=== PATIENT | male | born 1950 | race Caucasian/White ===

== ENCOUNTER 2018-08-07 05:26 | Inpatient (IN) ==
[2018-07-31 19:21] LABS: ALT/SGPT 22 U/l (0-40); AST/SGOT 19 U/l (0-37); Albumin 3.9 gm/dL (3.2-5.2); Albumin/Globulin Ratio 1.4 (1.0-2.3); Alkaline Phosphatase 93 U/L (39-117); Bilirubin,Total 0.4 mg/dL (0.0-1.0); Blood Urea Nitrogen 27 mg/dl (8-23); Calcium 9.2 mg/dl (8.6-10.4); Carbon Dioxide 20 mmol/L (22-30); Chloride 106 mmol/L (96-108); Globulin 2.8 gm/dL (2.2-3.7); Glomerular Filtration Rate 44; Glucose 110 mg/dL (70-105); Potassium 5.1 mmol/L (3.3-5.1); Sodium 141 mmol/L (133-145)
[2018-07-31 19:32] LABS: Basophils # (Auto) 0 K/mcL (0.0-0.3); Basophils % (Auto) 0.3 % (0.0-2.0); Eosinophils # (Auto) 0.4 K/mcL (0.0-0.7); Eosinophils % (Auto) 2.5 % (0.0-7.0); Granulocytes % (Auto) 79.3 % (38.0-78.0); Hemoglobin 12.8 g/dL (13.5-16.5); Lymphocytes # (Auto) 1.8 K/mcL (1.5-4.8); Lymphocytes % (Auto) 12.4 % (15.5-49.0); Mean Platelet Volume 9.2 fL (7.4-10.4); Monocytes # (Auto) 0.8 K/mcL (0.1-0.9); Monocytes % (Auto) 5.5 % (1.0-12.0); Platelet Count 323 K/mcL (140-440); RBC 4.54 M/mcL (4.50-5.90); Red Cell Distribution Width 15.3 % (11.5-14.5); WBC 14.4 K/mcL (4.5-11.0)
[2018-08-07] MEDS ORDERED: cefOXitin 2 GM VIAL IV SCH (06:00)
[2018-08-07] MEDS ORDERED: IPRATROPIUM/ALBUTEROL 3 ML AMPUL.NEB NEB PRN ×2 (06:00→11:09)
[2018-08-07] MEDS ORDERED: SCOPOLAMINE 1 PATCH PATCH TOPICAL PRN (06:00)
[2018-08-07 06:57] LABS: Estimated Average Glucose(eAG) 157 mg/dL; Hemoglobin A1C 7.1 % HGB (4.0-6.0)
[2018-08-07] MEDS ORDERED: ONDANSETRON 4 MG/2 ML VIAL IV ONE (09:10)
[2018-08-07] MEDS ORDERED: MIDAZOLAM 2 MG/2 ML VIAL IV ONE (09:10)
[2018-08-07] MEDS ORDERED: LIDOCAINE HCL/PF 100 MG/5 ML SYRINGE IV ONE (09:10)
[2018-08-07] MEDS ORDERED: GLYCOPYRROLATE 0.2 MG/ML VIAL IV ONE (09:10)
[2018-08-07] MEDS ORDERED: DEXAMETHASONE 10 MG/ML VIAL IV ONE (09:10)
[2018-08-07] MEDS ORDERED: PHENYLEPHRINE 10 MG/ML VIAL IV ONE (09:10)
[2018-08-07] MEDS ORDERED: SUGAMMADEX SODIUM 200 MG/2 ML VIAL IV ONE (09:10)
[2018-08-07] MEDS ORDERED: SUCCINYLCHOLINE 20 MG/ML ML IV ONE (09:10)
[2018-08-07] MEDS ORDERED: HYDROmorphone 2 MG/ML VIAL IV ONE (09:10)
[2018-08-07] MEDS ORDERED: ROCURONIUM 10 MG/ML ML IV ONE (09:10)
[2018-08-07] MEDS ORDERED: PROPOFOL 200 MG/20 ML VIAL IV ONE (09:10)
[2018-08-07] MEDS ORDERED: KETAMINE 100 MG/ML ML IV ONE (09:10)
[2018-08-07] MEDS ORDERED: fentaNYL 250 MCG/5 ML VIAL IV ONE (09:10)
[2018-08-07] MEDS ORDERED: 0.9 % SODIUM CHLORIDE 250 ML IV SCH (10:45)
[2018-08-07] MEDS ORDERED: GELATIN SPONGE,ABSORBABLE 1 EACH SPONGE TOPICAL ONE (11:00)
[2018-08-07] MEDS ORDERED: ACETAMINOPHEN 1,000 MG/100 ML BOTTLE IV ONE (11:09)
[2018-08-07] MEDS ORDERED: HYDROmorphone 2 MG/ML VIAL IV PRN (11:09)
[2018-08-07] MEDS ORDERED: LACTATED RINGERS 250 ML IV PRN (11:09)
[2018-08-07] MEDS ORDERED: METHOCARBAMOL 1,000 MG/10 ML VIAL IV PRN (11:09)
[2018-08-07] MEDS ORDERED: FLUMAZENIL 0.1 MG/ML ML IV PRN (11:09)
[2018-08-07] MEDS ORDERED: BENZOCAINE/MENTHOL 1 LOZENGE PO PRN (11:09)
[2018-08-07] MEDS ORDERED: ONDANSETRON 4 MG/2 ML VIAL IV PRN ×2 (11:09→11:14)
[2018-08-07] MEDS ORDERED: NALOXONE HCL 0.4 MG/ML VIAL IV PRN (11:09)
[2018-08-07] MEDS ORDERED: fentaNYL 100 MCG/2 ML VIAL IV PRN (11:09)
[2018-08-07] MEDS ORDERED: MAGNESIUM HYDROXIDE 30 ML ORAL.SUSP PO PRN (11:14)
[2018-08-07] MEDS ORDERED: BISACODYL 10 MG SUPP.RECT PR PRN (11:14)
[2018-08-07] MEDS ORDERED: ONDANSETRON 4 MG ODT TABLET SL PRN (11:14)
[2018-08-07] MEDS ORDERED: MAG HYDROX/AL HYDROX/SIMETH 30 ML ORAL.SUSP PO PRN (11:14)
[2018-08-07] MEDS ORDERED: HYDROmorphone PCA 30 MG/30 ML PCA.VIAL IV PRN (11:14)
[2018-08-07] MEDS ORDERED: LACTATED RINGERS 1,000 ML IV SCH (11:15)
[2018-08-07] MEDS ORDERED: NAPROXEN 250 MG TABLET PO PRN (11:20)
[2018-08-07] MEDS ORDERED: ALBUTEROL SULFATE 1 PUFF INHALER INH PRN (11:20)
--- NOTE | 2018-08-07 11:27 | Brief Operative Note ---
Date of procedure: 08/07/18 Pre-op diagnosis: left renal cell ca Post-op diagnosis: same Procedure: left radical nephrectomy Grafts/Implants: No Anesthesia: GETA Findings: see note Complications: none Surgeon: Channing Grubbs Laborer Poultry Hatchery: Christina Kam Estimated blood loss (cc): 1,000 Specimens Removed/Pathology: other (left kidney) Condition: stable Disposition: PACU
[2018-08-07] MEDS ORDERED: ACETAMINOPHEN 650 MG/65 ML BOTTLE IV SCH (11:30)
--- NOTE | 2018-08-07 11:57 | Operative Note ---
DATE OF OPERATION: 08/07/2018 PREOPERATIVE DIAGNOSIS: Left renal cancer. POSTOPERATIVE DIAGNOSIS: Left renal cancer. PROCEDURE: Left radical nephrectomy. SURGEON: Channing Grubbs MD C.O.D. CLERK: Christina Kam MD INDICATION: The patient is a 67-year-old gentleman who incidentally had a mass on the left kidney. This was biopsied and was consistent with renal cell carcinoma. He presents now for resection. PROCEDURE IN DETAIL: The patient was identified and consent was signed. He was given general anesthesia plus IV antibiotics, placed in supine position, and prepped and draped in a standard fashion. A subcostal incision was performed and this was carried down to the fascia with electrocautery. The fascia was then opened and we were able to enter the abdominal cavity. The bowel was carefully removed. We were able to take down the colon along the white line of Toldt. He did have a large amount of fat in the retroperitoneal space. We then carefully dissected the kidney where I was able to identify the renal vein and this was doubly ligated and clipped, both proximally and distally. We then were able to identify the artery and this was clipped, both medially and laterally. I was pleased with the overall appearance. At this point, we then continued to dissect. We did not remove the adrenal glands. Bleeding was controlled with electrocautery. The ureter was clipped and sent with the specimen. We then were able to deliver the kidney. We inspected for bleeding and irrigated three times and there was no bleeding. Gelfoam was placed over the pedicle. The bowel was placed back in its proper position. The abdominal wall was closed in three layers and the fat was closed with a 2-0 Vicryl. Genevieve were applied. The patient was awoken and taken to recovery room in stable condition. He tolerated the procedure well. Estimated blood loss was 1000 mL. He will receive 1 unit of blood in the PACU. Needle and sponge count were correct. MARTINE:loc Job ID: [id number] Doc ID: [id number] Channing Grubbs MD
[2018-08-07] MEDS ORDERED: HYDROcodone/APAP 5/325MG TABLET PO PRN (12:06)
[2018-08-07 12:41] LABS: POC Blood Urea Nitrogen 28 mg/dl (8-23); POC CO2 25 mmol/L (22-30); POC Chloride 104 mmol/L (96-108); POC Creatinine 1.4 mg/dl (0.7-1.2); POC Glucose, Random 242 mg/dL (70-105); POC Potassium 6.4 mmol/L (3.3-5.1); POC Sodium 136 mmol/L (133-145)
[2018-08-07] MEDS ORDERED: FUROSEMIDE 20 MG/2 ML VIAL IV ONE ×2 (12:43→15:29)
[2018-08-07] MEDS: DEXTROSE 5%-NS 1,000 ML IV SCH ×2 (13:15→20:19)
[2018-08-07] MEDS: 0.9 % SODIUM CHLORIDE 10 ML SYRINGE IV SCH ×4 (13:45→21:26)
[2018-08-07 15:27] LABS: Potassium 6.6 mmol/L (3.3-5.1)
[2018-08-07] MEDS ORDERED: SODIUM POLYSTYRENE SULFONATE 15 GM/60 ML SUSPENSION PO ONE ×2 (15:29→20:01)
[2018-08-07] MEDS: glipiZIDE 5 MG TABLET PO SCH (16:35)
[2018-08-07] MEDS: cefOXitin 2 GM VIAL IV SCH (16:53)
[2018-08-07] MEDS ORDERED: metFORMIN 850 MG TABLET PO SCH (17:30)
[2018-08-07 19:45] LABS: Potassium 6.8 mmol/L (3.3-5.1)
[2018-08-07] MEDS ORDERED: INSULIN LISPRO 1 UNIT/0.01 ML UNIT SQ ONE (20:11)
[2018-08-07] MEDS: 0.9 % SODIUM CHLORIDE 1,000 ML IV SCH (20:18)
[2018-08-07] MEDS: PREGABALIN 75 MG CAPSULE PO SCH (20:18)
[2018-08-07] MEDS: INSULIN LISPRO 1 UNIT/0.01 ML UNIT SQ SCH (20:26)
[2018-08-07] MEDS: Budesonide/Formoterol Fumarate [Symbicort 160-4.5 MCG] Inhaler INH SCH (21:46)
[2018-08-08] MEDS: cefOXitin 2 GM VIAL IV SCH ×2 (00:42→09:26)
[2018-08-08 04:59] LABS: Hematocrit 32.9 % (41.0-55.0); Hemoglobin 10.5 g/dL (13.5-16.5); Mean Cell Volume 88.5 fL (80.0-100.0); Mean Platelet Volume 8.9 fL (7.4-10.4); Platelet Count 295 K/mcL (140-440); RBC 3.72 M/mcL (4.50-5.90); Red Cell Distribution Width 14.9 % (11.5-14.5); WBC 27.1 K/mcL (4.5-11.0)
[2018-08-08 05:24] LABS: Blood Urea Nitrogen 31 mg/dl (8-23); Calcium 7.5 mg/dl (8.6-10.4); Carbon Dioxide 22 mmol/L (22-30); Chloride 104 mmol/L (96-108); Glomerular Filtration Rate 24; Glucose 206 mg/dL (70-105); Potassium 6.1 mmol/L (3.3-5.1); Sodium 137 mmol/L (133-145)
[2018-08-08] MEDS: 0.9 % SODIUM CHLORIDE 10 ML SYRINGE IV SCH ×6 (05:48→20:34)
[2018-08-08] MEDS: 0.9 % SODIUM CHLORIDE 1,000 ML IV SCH (06:55)
--- NOTE | 2018-08-08 07:28 | General Surgery Progress Note ---
Subjective Patient reports: feels better Narrative: Note initiated : 08/08/18 at 7:25 am Service Date, if different from initiated Date: [] Patient: Anival Cabezas a 67 y/o M admitted on 08/07/18 for Left Radical Nephrectom y. Chief Complaint: POD #1 patient feeling better. K+ still a problem. asymptomatic. tried lasix, kexalate, insulin. Asked hospitalist to see patient. wound clean and dry. 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 Objective Temp Pulse Resp BP Pulse Ox 98.8 F 71 16 138/83 94 08/08/18 07:04 08/07/18 12:42 08/08/18 07:04 08/08/18 07:04 08/08/18 07:04 - Additional Data Intake & Output - Last 24 hours: Intake & Output 08/06/18 08/07/18 08/08/18 08/09/18 05:59 05:59 05:59 05:59 Intake Total 760 1000 Output Total 2475 Balance -1715 1000 Weight 248 lb 237 lb - Labs 08/08/18 03:26 08/08/18 03:26 Diabetes panel 08/07/18 08/07/18 08/08/18 Range/Units 14:42 18:55 03:26 Sodium 137 (133-145) mmol/L Potassium 6.6 H* 6.8 H* 6.1 H* (3.3-5.1) mmol/L Chloride 104 (96-108) mmol/L Carbon Dioxide 22 (22-30) mmol/L BUN 31 H (8-23) mg/dl Creatinine 2.6 H (0.7-1.2) mg/dl Glucose 206 H (70-105) mg/dL Calcium 7.5 L (8.6-10.4) mg/dl Calcium panel 08/08/18 Range/Units 03:26 Calcium 7.5 L (8.6-10.4) mg/dl Pituitary panel 08/07/18 08/07/18 08/08/18 Range/Units 14:42 18:55 03:26 Sodium 137 (133-145) mmol/L Potassium 6.6 H* 6.8 H* 6.1 H* (3.3-5.1) mmol/L Chloride 104 (96-108) mmol/L Carbon Dioxide 22 (22-30) mmol/L BUN 31 H (8-23) mg/dl Creatinine 2.6 H (0.7-1.2) mg/dl Glucose 206 H (70-105) mg/dL Calcium 7.5 L (8.6-10.4) mg/dl Adrenal panel 08/07/18 08/07/18 08/08/18 Range/Units 14:42 18:55 03:26 Sodium 137 (133-145) mmol/L Potassium 6.6 H* 6.8 H* 6.1 H* (3.3-5.1) mmol/L Chloride 104 (96-108) mmol/L Carbon Dioxide 22 (22-30) mmol/L BUN 31 H (8-23) mg/dl Creatinine 2.6 H (0.7-1.2) mg/dl Glucose 206 H (70-105) mg/dL Calcium 7.5 L (8.6-10.4) mg/dl Assessment and Plan - Time Spent With Patient Total time spent is greater than 50% in coordination of care (as documented) at patient's floor/unit and/or counseling patient:
[2018-08-08] MEDS: ALLOPURINOL 100 MG TABLET PO SCH (08:17)
[2018-08-08] MEDS: LACTATED RINGERS 1,000 ML IV SCH ×4 (08:17→20:10)
[2018-08-08] MEDS: ASCORBIC ACID 500 MG TABLET PO SCH (08:17)
[2018-08-08] MEDS: PREGABALIN 75 MG CAPSULE PO SCH ×2 (08:17→20:33)
[2018-08-08] MEDS: VITAMIN D3 5,000 UNIT CAPSULE PO SCH (08:17)
[2018-08-08] MEDS: INSULIN LISPRO 1 UNIT/0.01 ML UNIT SQ SCH ×4 (08:18→20:33)
[2018-08-08] MEDS: Budesonide/Formoterol Fumarate [Symbicort 160-4.5 MCG] Inhaler INH SCH ×2 (08:19→20:33)
[2018-08-08] MEDS: oxyCODONE/APAP 5/325MG TABLET PO PRN ×3 (08:29→19:37)
[2018-08-08] MEDS ORDERED: hydrALAZINE 20 MG/ML VIAL IV PRN (08:53)
[2018-08-08] MEDS ORDERED: FAMOTIDINE 20 MG TABLET PO SCH ×2 (09:00→21:00)
[2018-08-08] MEDS ORDERED: LOSARTAN 25 MG TABLET PO SCH (09:00)
[2018-08-08 09:18] LABS: ALT/SGPT 28 U/l (0-40); AST/SGOT 28 U/l (0-37); Albumin 3.4 gm/dL (3.2-5.2); Albumin/Globulin Ratio 1.3 (1.0-2.3); Alkaline Phosphatase 69 U/L (39-117); Bilirubin,Direct < 0.2 mg/dL (0.0-0.3); Bilirubin,Total 0.6 mg/dL (0.0-1.0); Blood Urea Nitrogen 32 mg/dl (8-23); Calcium 7.7 mg/dl (8.6-10.4); Carbon Dioxide 21 mmol/L (22-30); Chloride 103 mmol/L (96-108); Globulin 2.6 gm/dL (2.2-3.7); Glomerular Filtration Rate 21; Glucose 224 mg/dL (70-105); Lactate Dehydrogenase 256 U/L (94-250); Phosphorous 4.2 mg/dL (2.7-4.5); Potassium 5.1 mmol/L (3.3-5.1); Sodium 138 mmol/L (133-145); Triglycerides 138 mg/dl (<150); Uric Acid 7.7 mg/dL (2.5-8.0)
[2018-08-08] MEDS ORDERED: MAGNESIUM SULFATE 2 GM/50 ML BAG IV ONE ×2 (09:37→20:42)
--- NOTE | 2018-08-08 09:50 | Internal Med History&Physical ---
Medical - H&P: HPI Patient information: Note initiated : 08/08/18 at 9:40 am Service Date, if different from initiated Date: [] Patient: Anival Cabezas a 67 y/o M admitted on 08/07/18 for Left Radical Nephrectomy. Chief Complaint: [] History of present illness: Mr. Cabezas is a 67 year old M with h/o DM, HTN, and recently diagnosed renal cell carcinoma was admitted to the hospital for a left sided nephrectomy. The patient before the surgery was noted to be hyperkalemic, with a K of 6.4 on POC chemistry, treated with lasix. Post op the patient potassium continued to be elevated, was as high as 6.8, was treated medically and this AM was 6.1, as the patient had persistent hyperkalemia, medicine was consulted to help manage potassium. The patient on my eval was sitting comfortably in the chair, had some discomfort int he abdomen / on the left side of surgery, but denies any other complaints. The patient denies any headache changes in vision difficulty in swallowing any chest pain shortness of breath cough no nausea or vomiting. Denies any constipation. Did have multiple bowel movements this morning. Patient has a Major in place which is draining clear urine. The patient drinks a banana smoothie every day, but otherwise denies any potassium supplements, he is on losartan which has been going on for many months to years no changes in dosage recently. Patient's medication list also shows that he is on naproxen but has not taken any over the last few days. Patient's vital signs reviewed, patient did have postop episode of hypotension last night with systolic blood pressure as low as 84/59. Labs reviewed show WBC count of 27.1, was 14.4 yesterday, hemoglobin 12.8 platelets 323 Sodium 137 potassium 6.1 this morning is 5.1 on repeat labs at 9, bicarbonate 22, BUN 31, creat 2.6 in a.m. 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) Chronic cough (Chronic) Diabetic peripheral neuropathy (Chronic) Tinnitus (Chronic) Gout (Chronic) Obesity (Chronic) Diabetes mellitus type 2 without retinopathy (Chronic) Age related cataract (Chronic) 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) Well adult (Chronic) Hyperlipidemia (Chronic) Osteoarthritis (Chronic) Surgical history: Past Surgical History (Last Reviewed 07/29/18 @ 10:55 by Constance Blake RN) History of right hip replacement (Acute) History of right shoulder replacement (Acute) Hx of appendectomy (Acute) History of colonoscopy (Chronic) Pertinent family history: Family History (Last Reviewed 07/29/18 @ 10:55 by Constance Blake RN) Other Cancer Diabetes HTN (hypertension) Heart attack Kidney stone Medical - H&P: Meds Home Medications Medication Instructions Recorded Confirmed Type albuterol sulfate HFA 90 2 puff INHALATION QIDP PRN 06/10/18 07/31/18 History mcg/actuation aerosol inhaler allopurinol 100 mg tablet 100 mg PO QDAY 06/10/18 07/31/18 History budesonide-formoterol HFA 160 2 puff INHALATION BID 06/10/18 07/31/18 History mcg-4.5 mcg/actuation aerosol inhaler cholecalciferol (vitamin D3) 5,000 5,000 unit PO QDAY 06/10/18 07/31/18 History unit capsule glipizide 5 mg tablet 5 mg PO BIDAC tab 06/10/18 07/31/18 History losartan 25 mg tablet 25 mg PO QDAY 06/10/18 07/31/18 History metformin 850 mg tablet 850 mg PO BIDCC 06/10/18 07/31/18 History naproxen 500 mg tablet 500 mg PO DAILYP PRN tab 06/10/18 07/31/18 History pregabalin 75 mg capsule 75 mg PO BID 06/10/18 07/31/18 History Ascorbic Acid [Vitamin C] 500 mg PO DAILY 07/31/18 07/31/18 History Allergies Allergy/AdvReac Type Severity Reaction Status Date / Time pepper (genus Capsicum) Allergy Severe Difficulty Verified 08/07/18 09:25 Breathing codeine Allergy Mild Rash Verified 07/31/18 15:07 hydrocodone Allergy Mild Rash Verified 07/31/18 15:07 Penicillins Allergy Mild Rash Verified 07/31/18 15:07 black walnut AdvReac Mild Vomiting Verified 07/31/18 15:07 lisinopril AdvReac Mild Cough Verified 08/08/18 00:43 Medical - H&P: Exam - Constitutional Vitals: Temp Pulse Resp BP Pulse Ox 98.8 F 71 16 138/83 94 08/08/18 07:04 08/07/18 12:42 08/08/18 07:04 08/08/18 07:04 08/08/18 07:04 Exam: GENERAL: The patient is a well-developed, well-nourished in no apparent distress. Is alert and oriented x3. VITAL SIGNS: Reviewed and as noted elsewhere. HEENT: Head is normocephalic and atraumatic. Extraocular muscles are intact. Pupils are equal, round, and reactive to light. Nares appeared normal. Mouth appears any without lesions. Mucous membranes are moist. NECK: Normal to inspection, Supple, No lymphadenopathy or thyromegaly. LUNGS: Air entry equal on both sides, no wheezing, crackles or rhonchi noted. No accessory muscles of respiration HEART: Regular rate and rhythm normal, S1 and S2 heard, no Gallop, S3 or Rub Noted, No Gross murmur heard. ABDOMEN: Soft, nontender, and nondistended. No hepatosplenomegaly was noted. bandage on left flank, obese abdomen EXTREMITIES: No cyanosis, clubbing, rash, lesions or edema. NEUROLOGIC: Cranial nerves II through XII are grossly intact. Motor and Sensory System Grossly Intact PSYCHIATRIC: Normal affect, Normal Mood. Appropriate Behavior. SKIN: No ulceration or wounds noted, No jaundice, No rash noted. Medical - H&P: Reslt - Labs CBC & Chem 7: 08/08/18 03:26 08/08/18 07:56 Labs: Short CBC 08/08/18 Range/Units 03:26 WBC 27.1 H (4.5-11.0) K/mcL Hgb 10.5 L (13.5-16.5) g/dL Hct 32.9 L (41.0-55.0) % Plt Count 295 (140-440) K/mcL BMP 08/07/18 08/07/18 08/08/18 14:42 18:55 03:26 Sodium 137 Potassium 6.6 H* 6.8 H* 6.1 H* Chloride 104 Carbon Dioxide 22 BUN 31 H Creatinine 2.6 H Glucose 206 H Calcium 7.5 L 08/08/18 07:56 Sodium 138 Potassium 5.1 Chloride 103 Carbon Dioxide 21 L BUN 32 H Creatinine 2.9 H Glucose 224 H Calcium 7.7 L Liver Function 08/08/18 Range/Units 07:56 Total Bilirubin 0.6 (0.0-1.0) mg/dL Direct Bilirubin < 0.2 (0.0-0.3) mg/dL GGT 29 (8-61) U/L AST 28 (0-37) U/l ALT 28 (0-40) U/l Alkaline Phosphatase 69 (39-117) U/L Albumin 3.4 (3.2-5.2) gm/dL Medical - H&P: A/P - Narrative A/P Narrative: A/P Acute hyperkalemia -Etiology not clear at this time, given that patient presented with hyperkalemia, on losartan, but does have high K intake and had creat of 1.4 which likely contributed to the presenting K, also meds used for anesthesa/ muscle relaxants can contribute, his K likely worsened with worsening renal function. last K check this AM is 5.1, he did seem to respond to kayexalate, but a bit late, given his BM stated this AM. Will monitor K levels and ensure a continued down trend. check urine K -hold losartan for now Acute Kidney injury, ATN vs pre renal - Creat jumped from 1.4 to 2.9, pt now has single kidney, he is making urine, one episode of hypotension(documented) and lasix given pre and post op -check ua, FENA -Likely etiology, hypovolemia, and ATN related to low BP, -IV fluids for now, trend renal function, if renal function continues to decline, will get renal sonogram Hypomagnesemia - Mg 1.0, replace Obesity, BMI 36 -outpatient management DM -Hold oral DM meds while inpt, ssi insulin, avoid metfomrin / glipizide for now given decline in renal function GERD - dose adjust Famotid for renal function Leucocytosis -WBC 27K, clinically appears quite stable, doubt if active infection, will trend, likely reactive post stress DVT Scd Social History - Social History service: Yes - Service service: retired - Tobacco smoking status: Former smoker - Quit Details pack-years: 2 - Alcohol alcohol intake frequency: a few times a week - Substance use substance use type: does not use
[2018-08-08 13:20] LABS: Appearance,Urine CLEAR; Bacteria,Urine 0 /hpf (0); Bilirubin,Urine NEG (NEG); Color,Urine YELLOW; Culture Indicated,Urine NO; Glucose,Urine (UA) NEGATIVE (NEG); Ketones,Urine 5/TR mg/dL (NEG); Leukocyte Esterase,Urine 25 /uL (NEG); Mucus,Urine FEW /hpf (0); Nitrate,Urine NEG (NEG); Protein,Urine 100 mg/dL (NEG); Urine Blood 0.03 mg/dL (<0.03); Urine RBC 7 /hpf (0-1); Urine Squamous Epithelial Cell 0 /hpf (0-4); Urine Transitional Epi Cells < 1 /hpf (0-2); Urine WBC 6 /hpf (0-4); Urobilinogen,Urine NEG (NEG)
[2018-08-08 13:34] LABS: Creatinine,Urine Random 177.1 mg/dl
[2018-08-08 19:02] LABS: Blood Urea Nitrogen 34 mg/dl (8-23); Calcium 7.2 mg/dl (8.6-10.4); Carbon Dioxide 22 mmol/L (22-30); Chloride 102 mmol/L (96-108); Glomerular Filtration Rate 23; Glucose 223 mg/dL (70-105); Potassium 4.6 mmol/L (3.3-5.1); Sodium 137 mmol/L (133-145)
[2018-08-08] MEDS: glipiZIDE 5 MG TABLET PO SCH (19:44)
[2018-08-09] MEDS: LACTATED RINGERS 1,000 ML IV SCH ×2 (00:50→05:09)
[2018-08-09] MEDS: oxyCODONE/APAP 5/325MG TABLET PO PRN ×3 (03:34→15:59)
[2018-08-09] MEDS: 0.9 % SODIUM CHLORIDE 10 ML SYRINGE IV SCH ×6 (04:53→21:13)
[2018-08-09 05:21] LABS: Hematocrit 27.2 % (41.0-55.0); Hemoglobin 8.7 g/dL (13.5-16.5); Mean Cell Volume 88.8 fL (80.0-100.0); Mean Corpuscular HGB Conc 31.9 g/dL (31.0-36.0); Mean Platelet Volume 8.9 fL (7.4-10.4); Platelet Count 230 K/mcL (140-440); RBC 3.07 M/mcL (4.50-5.90); Red Cell Distribution Width 14.6 % (11.5-14.5); WBC 15.5 K/mcL (4.5-11.0)
[2018-08-09 05:40] LABS: Blood Urea Nitrogen 31 mg/dl (8-23); Calcium 7.4 mg/dl (8.6-10.4); Carbon Dioxide 23 mmol/L (22-30); Chloride 102 mmol/L (96-108); Glomerular Filtration Rate 27; Glucose 143 mg/dL (70-105); Potassium 4.7 mmol/L (3.3-5.1); Sodium 137 mmol/L (133-145)
[2018-08-09] MEDS: Budesonide/Formoterol Fumarate [Symbicort 160-4.5 MCG] Inhaler INH SCH ×2 (08:26→21:01)
[2018-08-09] MEDS: ALLOPURINOL 100 MG TABLET PO SCH (08:31)
[2018-08-09] MEDS: INSULIN LISPRO 1 UNIT/0.01 ML UNIT SQ SCH ×4 (08:31→21:08)
[2018-08-09] MEDS: ASCORBIC ACID 500 MG TABLET PO SCH (08:31)
--- NOTE | 2018-08-09 08:50 | General Surgery Progress Note ---
Subjective Patient reports: feels better, bowel movement, afebrile Narrative: Note initiated : 08/09/18 at 8:49 am Service Date, if different from initiated Date: [] Patient: Anival Cabezas 67 y/o M admitted on 08/07/18 for Left Radical Nephrectomy. Chief Complaint: [] pod #2 feeling better. K+ improve hct stable. d/c lora today, transfer to floor. Objective Temp Pulse Resp BP Pulse Ox 99 F 92 H 20 139/76 92 08/09/18 08:00 08/09/18 04:00 08/09/18 08:00 08/09/18 08:00 08/09/18 08:00 - Additional Data Intake & Output - Last 24 hours: Intake & Output 08/07/18 08/08/18 08/09/18 08/10/18 05:59 05:59 05:59 05:59 Intake Total 760 7632 679 Output Total 2475 1710 Balance -1715 5922 679 Weight 248 lb 237 lb 238 lb 8 oz - Labs 08/09/18 03:28 08/09/18 03:28 Diabetes panel 08/08/18 08/08/18 08/09/18 Range/Units 07:56 18:10 03:28 Sodium 138 137 137 (133-145) mmol/L Potassium 5.1 4.6 4.7 (3.3-5.1) mmol/L Chloride 103 102 102 (96-108) mmol/L Carbon Dioxide 21 L 22 23 (22-30) mmol/L BUN 32 H 34 H 31 H (8-23) mg/dl Creatinine 2.9 H 2.7 H 2.4 H (0.7-1.2) mg/dl Glucose 224 H 223 H 143 H (70-105) mg/dL Calcium 7.7 L 7.2 L 7.4 L (8.6-10.4) mg/dl AST 28 (0-37) U/l ALT 28 (0-40) U/l Alkaline Phosphatase 69 (39-117) U/L Total Protein 6.0 (5.9-8.4) gm/dL Albumin 3.4 (3.2-5.2) gm/dL Triglycerides 138 (<150) mg/dl Calcium panel 08/08/18 08/08/18 08/09/18 Range/Units 07:56 18:10 03:28 Calcium 7.7 L 7.2 L 7.4 L (8.6-10.4) mg/dl Phosphorus 4.2 (2.7-4.5) mg/dL Albumin 3.4 (3.2-5.2) gm/dL Pituitary panel 08/08/18 08/08/18 08/09/18 Range/Units 07:56 18:10 03:28 Sodium 138 137 137 (133-145) mmol/L Potassium 5.1 4.6 4.7 (3.3-5.1) mmol/L Chloride 103 102 102 (96-108) mmol/L Carbon Dioxide 21 L 22 23 (22-30) mmol/L BUN 32 H 34 H 31 H (8-23) mg/dl Creatinine 2.9 H 2.7 H 2.4 H (0.7-1.2) mg/dl Glucose 224 H 223 H 143 H (70-105) mg/dL Calcium 7.7 L 7.2 L 7.4 L (8.6-10.4) mg/dl Adrenal panel 08/08/18 08/08/18 08/09/18 Range/Units 07:56 18:10 03:28 Sodium 138 137 137 (133-145) mmol/L Potassium 5.1 4.6 4.7 (3.3-5.1) mmol/L Chloride 103 102 102 (96-108) mmol/L Carbon Dioxide 21 L 22 23 (22-30) mmol/L BUN 32 H 34 H 31 H (8-23) mg/dl Creatinine 2.9 H 2.7 H 2.4 H (0.7-1.2) mg/dl Glucose 224 H 223 H 143 H (70-105) mg/dL Calcium 7.7 L 7.2 L 7.4 L (8.6-10.4) mg/dl Total Bilirubin 0.6 (0.0-1.0) mg/dL AST 28 (0-37) U/l ALT 28 (0-40) U/l Alkaline Phosphatase 69 (39-117) U/L Total Protein 6.0 (5.9-8.4) gm/dL Albumin 3.4 (3.2-5.2) gm/dL Assessment and Plan - Time Spent With Patient Total time spent is greater than 50% in coordination of care (as documented) at patient's floor/unit and/or counseling patient:
[2018-08-09] MEDS ORDERED: MAGNESIUM OXIDE 400 MG TABLET PO SCH ×4 (09:00→21:00)
[2018-08-09] MEDS: PREGABALIN 75 MG CAPSULE PO SCH ×2 (09:01→21:00)
[2018-08-09] MEDS: VITAMIN D3 5,000 UNIT CAPSULE PO SCH (09:01)
--- NOTE | 2018-08-09 09:28 | Internal Med Progress Note ---
Medical - PN: Subj Patient information: Note initiated : 08/09/18 at 9:26 am Service Date, if different from initiated Date: [] Patient: Anival Cabezas a 67 y/o M admitted on 08/07/18 for Left Radical Nephrectomy. Chief Complaint: [] Interval history: Mr. Cbaezas is a 67 year old M with h/o DM, HTN, and recently diagnosed renal cell carcinoma was admitted to the hospital for a left sided nephrectomy. The patient before the surgery was noted to be hyperkalemic, with a K of 6.4 on POC chemistry, treated with lasix. Post op the patient potassium continued to be elevated, was as high as 6.8, was treated medically and this AM was 6.1, as the patient had persistent hyperkalemia, medicine was consulted to help manage p otassium. The patient on my eval was sitting comfortably in the chair, had some discomfort int he abdomen / on the left side of surgery, but denies any other complaints. The patient denies any headache changes in vision difficulty in swallowing any chest pain shortness of breath cough no nausea or vomiting. Denies any constipation. Did have multiple bowel movements this morning. Patient has a Major in place which is draining clear urine. The patient drinks a banana smoothie every day, but otherwise denies any potassium supplements, he is on losartan which has been going on for many months to years no changes in dosage recently. Patient's medication list also shows that he is on naproxen but has not taken any over the last few days. Patient's vital signs reviewed, patient did have postop episode of hypotension last night with systolic blood pressure as low as 84/59. Labs reviewed show WBC count of 27.1, was 14.4 yesterday, hemoglobin 12.8 platelets 323 Sodium 137 potassium 6.1 this morning is 5.1 on repeat labs at 9, bicarbonate 22, BUN 31, creat 2.6 in a.m. labs, repeawt labs show creat at 2.9, mg 1.0 Glucose dosing 08/09 patient seen and examined, sitting comfortably in chair. Labs reviewed, WBC trending down, potassium is stable creatinine is trending down now 2.4 this morning. Will discontinue IV fluids. Major to be removed as per urology. Check magnesium again. Pertinent ROS: Denies headache, dizziness Denies chest pain, palpitations Denies cough or shortness of breath Denies abdominal pain, nausea or vomiting. - Constitutional Vitals: Vital Signs Temp Pulse Resp BP Pulse Ox 99 F 92 H 20 139/76 92 08/09/18 08:00 08/09/18 04:00 08/09/18 08:00 08/09/18 08:00 08/09/18 08:00 Period Temp Pulse Resp BP Sys/Tapia Pulse Ox Last 24 Hr 97.4 F-99 F 92-99 18-20 110-171/59-78 92-99 Intake and Output 08/08/18 08/09/18 08/09/18 21:59 05:59 13:59 Intake Total 1999 2370 679 Output Total 450 1250 Balance 1550 1120 679 Weight 238 lb 8 oz Intake & Output: Intake & Output 08/08/18 08/09/18 08/09/18 21:59 05:59 13:59 Intake Total 1999 2370 679 Output Total 450 1250 Balance 1550 1120 679 Weight 238 lb 8 oz Intake: IV 1999 Lactated Ringers 1,000 ml @ 250 1999 1999 679 mls/hr IV .Q4H RENEE Rx#: [id number] Oral 320 Output: Urine Catheter Amount 450 1250 Other: Urine Appearance Clear Uretheral (Major) Clear Urine Color Uretheral (Major) Pale Stool Size Moderate Stool Color Brown Stool Consistency Loose # Bowel Movements 1 Exam: Constitutional; Afebrile, cooperative, alert, not in distress. Obese individual Respiratory system: Air Entry equal on both sides, No crackles or wheezing, no rhonchi. CVS- Rate rhythm regular, S1,S2 heard, no gallop, no rub. 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 Medical - PN: Obj Da - Labs CBC & Chem 7: 08/09/18 03:28 08/09/18 03:28 Labs: Abnormal Lab Results 08/09/18 08/09/18 08/08/18 03:28 03:28 18:10 WBC 15.5 H RBC 3.07 L Hgb 8.7 L Hct 27.2 L POC Hct RDW 14.6 H POC Potassium Potassium Carbon Dioxide POC BUN BUN 31 H 34 H Creatinine 2.4 H 2.7 H POC Creatinine Glucose 143 H 223 H POC Glucose Hemoglobin A1c Calcium 7.4 L 7.2 L POC WB Ioniz Calcium Magnesium Lactate Dehydrogenase Urine Protein Urine Ketones Urine Occult Blood Ur Leukocyte Esterase Urine RBC Urine WBC 08/08/18 08/08/18 08/08/18 10:30 07:56 03:26 WBC RBC Hgb Hct POC Hct RDW POC Potassium Potassium 6.1 H* Carbon Dioxide 21 L POC BUN BUN 32 H 31 H Creatinine 2.9 H 2.6 H POC Creatinine Glucose 224 H 206 H POC Glucose Hemoglobin A1c Calcium 7.7 L 7.5 L POC WB Ioniz Calcium Magnesium 1.0 L Lactate Dehydrogenase 256 H Urine Protein 100 A Urine Ketones 5/tr A Urine Occult Blood 0.03 A Ur Leukocyte Esterase 25 A Urine RBC 7 H Urine WBC 6 H 08/08/18 08/07/18 08/07/18 03:26 18:55 14:42 WBC 27.1 H RBC 3.72 L Hgb 10.5 L Hct 32.9 L POC Hct RDW 14.9 H POC Potassium Potassium 6.8 H* 6.6 H* Carbon Dioxide POC BUN BUN Creatinine POC Creatinine Glucose POC Glucose Hemoglobin A1c Calcium POC WB Ioniz Calcium Magnesium Lactate Dehydrogenase Urine Protein Urine Ketones Urine Occult Blood Ur Leukocyte Esterase Urine RBC Urine WBC 08/07/18 08/07/18 12:14 05:45 WBC RBC Hgb Hct POC Hct 35.0 L RDW POC Potassium 6.4 H* Potassium Carbon Dioxide POC BUN 28 H BUN Creatinine POC Creatinine 1.4 H Glucose POC Glucose 242 H Hemoglobin A1c 7.1 H Calcium POC WB Ioniz Calcium 1.10 L Magnesium Lactate Dehydrogenase Urine Protein Urine Ketones Urine Occult Blood Ur Leukocyte Esterase Urine RBC Urine WBC Meds: Medications Al Hydrox/Mg Hydrox/Simethicone (Maalox) 30 ml PO Q4HP PRN PRN Reason: Dyspepsia Albuterol Sulfate (Ventolin) 2 puff INH QIDP PRN PRN Reason: Shortness Of Breath Allopurinol (Zyloprim) 100 mg PO QDAY [facility] Last Admin: 08/09/18 08:31 Dose: 100 mg Documented by: Ascorbic Acid (Vitamin C) 500 mg PO DAILY [facility] Last Admin: 08/09/18 08:31 Dose: 500 mg Documented by: Bisacodyl (Dulcolax) 10 mg MA DAILYP PRN PRN Reason: Constipation Diagnostic Test (Pha) (Accu-Chek) 1 each FS [facility] Last Admin: 08/09/18 08:25 Dose: 1 each Documented by: Famotidine (Pepcid) 20 mg PO HS [facility] Last Admin: 08/08/18 20:32 Dose: 20 mg Documented by: Hydralazine HCl (Apresoline) 10 mg IV Q4-6HP PRN PRN Reason: Hypertension Acetaminophen (Ofirmev) 650 mg in 65 mls @ 130 mls/hr IV Q6HP [facility] Insulin Human Lispro (Humalog) 0 unit SQ [facility]; Protocol Last Admin: 08/09/18 08:31 Dose: 4 unit Documented by: Magnesium Hydroxide (Milk Of Magnesia) 30 ml PO DAILYP PRN PRN Reason: Constipation Magnesium Oxide (Magnesium Oxide) 400 mg PO BID [facility] Ondansetron HCl (Zofran) 4 mg IV Q6HP PRN PRN Reason: Nausea And Vomiting Ondansetron HCl (Zofran Odt) 4 mg SL Q6HP PRN PRN Reason: Nausea And Vomiting Oxycodone/Acetaminophen (Percocet 5-325 Mg) 0 tab PO Q4HP PRN PRN Reason: PAIN LEVEL 3-6 Last Admin: 08/09/18 09:01 Dose: 2 tab Documented by: Budesonide/Formoterol Fumarate [Symbicort 160-4.5 Mcg] Inhaler 1 dose INH BID [facility] Last Admin: 08/09/18 08:26 Dose: Not Given Documented by: Pregabalin (Lyrica) 75 mg PO BID [facility] Last Admin: 08/09/18 09:01 Dose: 75 mg Documented by: Sodium Chloride (Saline Flush) 10 ml IV Q8 [facility] Last Admin: 08/09/18 04:53 Dose: Not Given Documented by: Sodium Chloride (Saline Flush) 5 ml IV Q8 [facility] Last Admin: 08/09/18 05:09 Dose: 5 ml Documented by: Vitamin D (Vitamin D3) 5,000 unit PO QDAY [facility] Last Admin: 08/09/18 09:01 Dose: 5,000 unit Documented by: Medical - PN: A/P - Time Spent With Patient Total time spent is greater than 50% in coordination of care (as documented) at patient's floor/unit and/or counseling patient: - Narrative A/P Narrative: A/P Acute hyperkalemia -resolved, etiology not clear, low K diet for now Acute Kidney injury, ATN vs pre renal - Creat is 2.4, FENA was less than 1 -s/p IV fluids, will encourage po intake and monitor Hypomagnesemia - Mg 1.0, replaced, recheck, start on slow oral replacement Obesity, BMI 36 -outpatient management DM -Hold oral DM meds while inpt, ssi insulin, avoid metfomrin / glipizide for now given decline in renal function GERD - dose adjust Famotid for renal function Leucocytosis -WBC trending down, no obvious source of infection. DVT Scd
[2018-08-09 09:53] LABS: Magnesium 1.8 mg/dL (1.6-2.5)
[2018-08-09] MEDS ORDERED: ONDANSETRON 4 MG ODT TABLET SL PRN (10:54)
[2018-08-09] MEDS ORDERED: hydrALAZINE 20 MG/ML VIAL IV PRN (10:54)
[2018-08-09] MEDS ORDERED: MAG HYDROX/AL HYDROX/SIMETH 30 ML ORAL.SUSP PO PRN (10:54)
[2018-08-09] MEDS ORDERED: BISACODYL 10 MG SUPP.RECT PR PRN (10:54)
[2018-08-09] MEDS ORDERED: MAGNESIUM HYDROXIDE 30 ML ORAL.SUSP PO PRN (10:54)
[2018-08-09] MEDS ORDERED: ALBUTEROL SULFATE 1 PUFF INHALER INH PRN (10:54)
[2018-08-09] MEDS ORDERED: ACETAMINOPHEN 650 MG/65 ML BOTTLE IV SCH (10:54)
[2018-08-09] MEDS ORDERED: ONDANSETRON 4 MG/2 ML VIAL IV PRN (10:54)
[2018-08-09] MEDS ORDERED: FAMOTIDINE 20 MG TABLET PO SCH (21:00)
[2018-08-09] MEDS: MAGNESIUM OXIDE 400 MG TABLET PO SCH (21:00)
[2018-08-10] MEDS: oxyCODONE/APAP 5/325MG TABLET PO PRN ×2 (00:45→06:23)
[2018-08-10 05:15] LABS: Hematocrit 27.2 % (41.0-55.0); Hemoglobin 8.7 g/dL (13.5-16.5); Mean Cell Volume 88.4 fL (80.0-100.0); Mean Corpuscular HGB Conc 31.8 g/dL (31.0-36.0); Mean Platelet Volume 8.6 fL (7.4-10.4); Platelet Count 275 K/mcL (140-440); RBC 3.08 M/mcL (4.50-5.90); Red Cell Distribution Width 14.9 % (11.5-14.5); WBC 15.7 K/mcL (4.5-11.0)
[2018-08-10 05:42] LABS: Blood Urea Nitrogen 25 mg/dl (8-23); Calcium 8.3 mg/dl (8.6-10.4); Carbon Dioxide 23 mmol/L (22-30); Chloride 105 mmol/L (96-108); Glomerular Filtration Rate 27; Glucose 184 mg/dL (70-105); Potassium 4.8 mmol/L (3.3-5.1); Sodium 140 mmol/L (133-145)
[2018-08-10] MEDS: 0.9 % SODIUM CHLORIDE 10 ML SYRINGE IV SCH ×2 (06:21→06:53)
[2018-08-10] MEDS: INSULIN LISPRO 1 UNIT/0.01 ML UNIT SQ SCH (07:04)
[2018-08-10] MEDS ORDERED: VITAMIN D3 5,000 UNIT CAPSULE PO SCH (09:00)
[2018-08-10] MEDS ORDERED: ALLOPURINOL 100 MG TABLET PO SCH (09:00)
[2018-08-10] MEDS ORDERED: ASCORBIC ACID 500 MG TABLET PO SCH (09:00)
[2018-08-10] MEDS: Budesonide/Formoterol Fumarate [Symbicort 160-4.5 MCG] Inhaler INH SCH (09:11)
[2018-08-10] MEDS: MAGNESIUM OXIDE 400 MG TABLET PO SCH (09:11)
[2018-08-10] MEDS: PREGABALIN 75 MG CAPSULE PO SCH (09:11)
--- NOTE | 2018-08-10 09:28 | Internal Med Progress Note ---
Medical - PN: Subj Patient information: Note initiated : 08/10/18 at 9:25 am Service Date, if different from initiated Date: [] Patient: Anival Cabezas a 67 y/o M admitted on 08/07/18 for Left Radical Nephrectomy. Chief Complaint: [] Interval history: Mr. Cabezas is a 67 year old M with h/o DM, HTN, and recently diagnosed renal cell carcinoma was admitted to the hospital for a left sided nephrectomy. The patient before the surgery was noted to be hyperkalemic, with a K of 6.4 on POC chemistry, treated with lasix. Post op the patient potassium continued to be elevated, was as high as 6.8, was treated medically and this AM was 6.1, as the patient had persistent hyperkalemia, medicine was consulted to help manage p otassium. The patient on my eval was sitting comfortably in the chair, had some discomfort int he abdomen / on the left side of surgery, but denies any other complaints. The patient denies any headache changes in vision difficulty in swallowing any chest pain shortness of breath cough no nausea or vomiting. Denies any constipation. Did have multiple bowel movements this morning. Patient has a Major in place which is draining clear urine. The patient drinks a banana smoothie every day, but otherwise denies any potassium supplements, he is on losartan which has been going on for many months to years no changes in dosage recently. Patient's medication list also shows that he is on naproxen but has not taken any over the last few days. Patient's vital signs reviewed, patient did have postop episode of hypotension last night with systolic blood pressure as low as 84/59. Labs reviewed show WBC count of 27.1, was 14.4 yesterday, hemoglobin 12.8 platelets 323 Sodium 137 potassium 6.1 this morning is 5.1 on repeat labs at 9, bicarbonate 22, BUN 31, creat 2.6 in a.m. labs, repeawt labs show creat at 2.9, mg 1.0 Glucose dosing 08/09 patient seen and examined, sitting comfortably in chair. Labs reviewed, WBC trending down, potassium is stable creatinine is trending down now 2.4 this morning. Will discontinue IV fluids. Major to be removed as per urology. Check magnesium again. 08/10 patient seen examined, Creat stable at 2.4, K stable and normal stable for d/c from medical stand piont Pertinent ROS: Denies headache, dizziness Denies chest pain, palpitations Denies cough or shortness of breath Denies abdominal pain, nausea or vomiting. - Constitutional Vitals: Vital Signs Temp Pulse Resp BP Pulse Ox 98 F 77 20 155/70 95 08/10/18 06:50 08/10/18 06:50 08/10/18 06:50 08/10/18 06:50 08/10/18 06:50 Period Temp Pulse Resp BP Sys/Tapia Pulse Ox Last 24 Hr 98 F-99.5 F 77-87 20-22 118-155/61-78 92-96 Intake and Output 08/09/18 08/10/18 08/10/18 21:59 05:59 13:59 Intake Total 960 740 480 Output Total 350 600 725 Balance 610 140 -245 Weight 272 lb Intake & Output: Intake & Output 08/09/18 08/10/18 08/10/18 21:59 05:59 13:59 Intake Total 960 740 480 Output Total 350 600 725 Balance 610 140 -245 Weight 272 lb Intake: Oral 960 740 480 Output: Void Amount 350 600 725 Other: Meal Dinner Breakfast Percent of Meal Consumed 75% 100% Feeding Ability Independent Independent Urine Appearance Clear Clear Urine Color Dark Yellow Bright Yellow Urine Odor Normal # Voids 1 1 Exam: Constitutional; Afebrile, cooperative, alert, not in distress. Respiratory system: Air Entry equal on both sides, No crackles or wheezing, no rhonchi. CVS- Rate rhythm regular, S1,S2 heard, no gallop, no rub. 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 Medical - PN: Obj Da - Labs CBC & Chem 7: 08/10/18 03:51 08/10/18 03:51 Labs: Abnormal Lab Results 08/10/18 08/10/18 08/09/18 03:51 03:51 03:28 WBC 15.7 H RBC 3.08 L Hgb 8.7 L Hct 27.2 L POC Hct RDW 14.9 H POC Potassium Potassium Carbon Dioxide POC BUN BUN 25 H 31 H Creatinine 2.4 H 2.4 H POC Creatinine Glucose 184 H 143 H POC Glucose Calcium 8.3 L 7.4 L POC WB Ioniz Calcium Magnesium Lactate Dehydrogenase Urine Protein Urine Ketones Urine Occult Blood Ur Leukocyte Esterase Urine RBC Urine WBC 08/09/18 08/08/18 08/08/18 03:28 18:10 10:30 WBC 15.5 H RBC 3.07 L Hgb 8.7 L Hct 27.2 L POC Hct RDW 14.6 H POC Potassium Potassium Carbon Dioxide POC BUN BUN 34 H Creatinine 2.7 H POC Creatinine Glucose 223 H POC Glucose Calcium 7.2 L POC WB Ioniz Calcium Magnesium Lactate Dehydrogenase Urine Protein 100 A Urine Ketones 5/tr A Urine Occult Blood 0.03 A Ur Leukocyte Esterase 25 A Urine RBC 7 H Urine WBC 6 H 08/08/18 08/08/18 08/08/18 07:56 03:26 03:26 WBC 27.1 H RBC 3.72 L Hgb 10.5 L Hct 32.9 L POC Hct RDW 14.9 H POC Potassium Potassium 6.1 H* Carbon Dioxide 21 L POC BUN BUN 32 H 31 H Creatinine 2.9 H 2.6 H POC Creatinine Glucose 224 H 206 H POC Glucose Calcium 7.7 L 7.5 L POC WB Ioniz Calcium Magnesium 1.0 L Lactate Dehydrogenase 256 H Urine Protein Urine Ketones Urine Occult Blood Ur Leukocyte Esterase Urine RBC Urine WBC 08/07/18 08/07/18 08/07/18 18:55 14:42 12:14 WBC RBC Hgb Hct POC Hct 35.0 L RDW POC Potassium 6.4 H* Potassium 6.8 H* 6.6 H* Carbon Dioxide POC BUN 28 H BUN Creatinine POC Creatinine 1.4 H Glucose POC Glucose 242 H Calcium POC WB Ioniz Calcium 1.10 L Magnesium Lactate Dehydrogenase Urine Protein Urine Ketones Urine Occult Blood Ur Leukocyte Esterase Urine RBC Urine WBC Meds: Medications Al Hydrox/Mg Hydrox/Simethicone (Maalox) 30 ml PO Q4HP PRN PRN Reason: Dyspepsia Albuterol Sulfate (Ventolin) 2 puff INH QIDP PRN PRN Reason: Shortness Of Breath Allopurinol (Zyloprim) 100 mg PO QDAY [facility] Last Admin: 08/10/18 09:12 Dose: 100 mg Documented by: Ascorbic Acid (Vitamin C) 500 mg PO DAILY [facility] Last Admin: 08/10/18 09:12 Dose: 500 mg Documented by: Bisacodyl (Dulcolax) 10 mg [place] DAILYP PRN PRN Reason: Constipation Diagnostic Test (Pha) (Accu-Chek) 1 each FS [facility] Last Admin: 08/10/18 06:53 Dose: 1 each Documented by: Famotidine (Pepcid) 20 mg PO HS [facility] Last Admin: 08/09/18 21:00 Dose: 20 mg Documented by: Hydralazine HCl (Apresoline) 10 mg IV Q4-6HP PRN PRN Reason: Hypertension Acetaminophen (Ofirmev) 650 mg in 65 mls @ 130 mls/hr IV Q6HP [facility] Insulin Human Lispro (Humalog) 0 unit SQ [facility]; Protocol Last Admin: 08/10/18 07:04 Dose: 4 units Documented by: Magnesium Hydroxide (Milk Of Magnesia) 30 ml PO DAILYP PRN PRN Reason: Constipation Magnesium Oxide (Magnesium Oxide) 400 mg PO BID [facility] Last Admin: 08/10/18 09:11 Dose: 400 mg Documented by: Ondansetron HCl (Zofran) 4 mg IV Q6HP PRN PRN Reason: Nausea And Vomiting Ondansetron HCl (Zofran Odt) 4 mg SL Q6HP PRN PRN Reason: Nausea And Vomiting Oxycodone/Acetaminophen (Percocet 5-325 Mg) 0 tab PO Q4HP PRN PRN Reason: PAIN LEVEL 3-6 Last Admin: 08/10/18 06:23 Dose: 2 tab Documented by: Budesonide/Formoterol Fumarate [Symbicort 160-4.5 Mcg] Inhaler 1 dose INH BID [facility] Last Admin: 08/10/18 09:11 Dose: Not Given Documented by: Pregabalin (Lyrica) 75 mg PO BID [facility] Last Admin: 08/10/18 09:11 Dose: 75 mg Documented by: Sodium Chloride (Saline Flush) 10 ml IV Q8 [facility] Last Admin: 08/10/18 06:53 Dose: 10 ml Documented by: Sodium Chloride (Saline Flush) 5 ml IV Q8 [facility] Last Admin: 08/10/18 06:21 Dose: Not Given Documented by: Vitamin D (Vitamin D3) 5,000 unit PO QDAY [facility] Last Admin: 08/10/18 09:12 Dose: 5,000 unit Documented by: Medical - PN: A/P - Time Spent With Patient Total time spent is greater than 50% in coordination of care (as documented) at patient's floor/unit and/or counseling patient: - Narrative A/P Narrative: A/P Acute hyperkalemia -resolved, hold losartan for now Acute Kidney injury, ATN vs pre renal - Creat is 2.4, FENA was less than 1 -stable, ooutaptient follow with PCP Hypomagnesemia - Mg improved. oral mag oxide for few weeks to replenish stores Obesity, BMI 36 -outpatient management DM -Hold oral DM meds while inpt, ssi insulin, avoid metfomrin / glipizide for now given decline in renal function -stable for d/c, no metformin at d/c, glipizide dose to be cut in half. I have explained the medication changes to the patient. Leucocytosis -reactive. no e/o infection DVT Scd
--- NOTE | 2018-08-10 09:41 | General Surgery Progress Note ---
Subjective Patient reports: feels better, tolerating a regular diet Narrative: Note initiated : 08/10/18 at 9:40 am Service Date, if different from initiated Date: [] Patient: Anival Cabezas 67 y/o M admitted on 08/07/18 for Left Radical Nephrectomy. Chief Complaint: [] POD #3 patient doing well. will d/c to home. Objective Temp Pulse Resp BP Pulse Ox 98 F 77 20 155/70 95 08/10/18 06:50 08/10/18 06:50 08/10/18 06:50 08/10/18 06:50 08/10/18 06:50 - Additional Data Intake & Output - Last 24 hours: Intake & Output 08/08/18 08/09/18 08/10/18 08/11/18 05:59 05:59 05:59 05:59 Intake Total 760 7632 2379 480 Output Total 2475 1710 1950 725 Balance -1715 5922 429 -245 Weight 237 lb 238 lb 8 oz 272 lb - Labs 08/10/18 03:51 08/10/18 03:51 Diabetes panel 08/10/18 Range/Units 03:51 Sodium 140 (133-145) mmol/L Potassium 4.8 (3.3-5.1) mmol/L Chloride 105 (96-108) mmol/L Carbon Dioxide 23 (22-30) mmol/L BUN 25 H (8-23) mg/dl Creatinine 2.4 H (0.7-1.2) mg/dl Glucose 184 H (70-105) mg/dL Calcium 8.3 L (8.6-10.4) mg/dl Calcium panel 08/10/18 Range/Units 03:51 Calcium 8.3 L (8.6-10.4) mg/dl Pituitary panel 08/10/18 Range/Units 03:51 Sodium 140 (133-145) mmol/L Potassium 4.8 (3.3-5.1) mmol/L Chloride 105 (96-108) mmol/L Carbon Dioxide 23 (22-30) mmol/L BUN 25 H (8-23) mg/dl Creatinine 2.4 H (0.7-1.2) mg/dl Glucose 184 H (70-105) mg/dL Calcium 8.3 L (8.6-10.4) mg/dl Adrenal panel 08/10/18 Range/Units 03:51 Sodium 140 (133-145) mmol/L Potassium 4.8 (3.3-5.1) mmol/L Chloride 105 (96-108) mmol/L Carbon Dioxide 23 (22-30) mmol/L BUN 25 H (8-23) mg/dl Creatinine 2.4 H (0.7-1.2) mg/dl Glucose 184 H (70-105) mg/dL Calcium 8.3 L (8.6-10.4) mg/dl Assessment and Plan - Time Spent With Patient Total time spent is greater than 50% in coordination of care (as documented) at patient's floor/unit and/or counseling patient:
--- NOTE | 2018-08-11 07:28 | Discharge Summary ---
DATE OF ADMISSION: 08/07/2018 DATE OF DISCHARGE: 08/10/2018 DATE OF ADMISSION: 08/07/2018 DATE OF DISCHARGE: 08/10/2018 DIAGNOSIS: Left renal cell carcinoma. DISCHARGE DIAGNOSES: Left renal cell carcinoma. PROCEDURE: Left radical nephrectomy. CONSULTANTS: Dr. Garcia. INDICATIONS: The patient is a 67-year-old gentleman who had an incidental mass on his left kidney. Biopsy was performed which showed renal cell carcinoma and he presents now for excision. For the rest of history and physical, please see dictation. HOSPITAL COURSE: The patient was taken to the operating room where a left radical nephrectomy was performed. He did well but did receive 1 unit of blood postoperatively. His potassium was noted to be rising and he was given Kayexalate, insulin and Lasix and started to go down. I asked Dr. Garcia to see the patient because of his diabetes and high potassium level. With these administrations the potassium did go down to normal levels and has been stable. He was advanced rapidly through his diet, is tolerating regular food and pain is controlled with medication. He is ready for discharge to home. Postoperative hematocrit was 27.2 and he is asymptomatic. Creatinine is 2.4. The patient will be discharged home on his regular meds plus Percocet for pain. We will follow up in a week for staple removal and he will follow up for his diabetes with his primary care doctor. MARTINE:loc Job ID: [id number] Doc ID: [id number] Channing Grubbs MD
--- NOTE | 2018-08-14 11:45 | Surgical Pathology Report ---
HISTOLOGY SPECIMEN MICROSCOPIC DIAGNOSIS KIDNEY, LEFT, RADICAL NEPHRECTOMY: -- CLEAR CELL RENAL CELL CARCINOMA, SOLEDAD NUCLEAR GRADE 3. - SIZE: 5.4 cm, LIMITED TO KIDNEY. - LYMPH-VASCULAR INVASION: NOT IDENTIFIED. - MARGINS: FREE OF CARCINOMA. -- ADRENAL GLAND WITH NO DIAGNOSTIC ALTERATIONS. -- BACKGROUND KIDNEY WITH PATCHY INTERSTITIAL CHRONIC INFLAMMATION AND ATHEROSCLEROTIC VESSELS. -- STAGE: pT1b NX (EBD:sln) SUMMARY CANCER DATA Procedure: Radical nephrectomy. Specimen Laterality: Left. Tumor Size: 5.4 cm. Tumor Focality: Single. Histologic Type: Clear cell renal cell carcinoma. Histologic (Soledad) Grade: 3. Sarcomatoid Features: Not identified. Rhabdoid Features: Not identified. Tumor necrosis: Not identified. Macroscopic Extent of Tumor: Involves renal hilum, involvement of sinus cannot be grossly excluded. Microscopic Tumor Extension: Limited to kidney. Lymph-Vascular Invasion: No lymph nodes submitted or found. Margins: Free of carcinoma. Lymph Nodes: None submitted. Pathologic Stage: pT1b NX. PROCEDURAL IMPRESSION Left renal cell carcinoma. GROSS DESCRIPTION The specimen is received as left kidney and consists of a radical nephrectomy specimen that measures 22 (s-i) x 13 (m-l) x 6.5 (a-p) and weighs 1035 grams. There is Gerota's fascia present with abundant lobular pale yellow adipose tissue. A portion of the adrenal gland is present that measures 2.2 x 2 x 0.4 cm. The ureter is identified within the hilar fat and measures 8.5 cm in length with a diameter of 0.3 cm. Renal vessels are cut flush with the hilar fat. The entire specimen is bivalved revealing a pale yellow lower pole mass with areas of degenerative change and necrosis that measures 5.4 x 4 x 4.5 cm. The tumor partially involves the renal hilum and calyx and possible foci of invasive tumor into the fat cannot be grossly excluded. Within the deep region of the tumor, the lesion encompasses vessels. The kidney measures 11 x 5.5 x 4.5 cm. No gross invasion into the renal vessels or calyx is seen. Sections submitted according to the following slide reynoso: A1 - vascular margins; A2 - perirenal fat and Gerota's fascia overlying tumor; A3 - adrenal gland; A4-A5 - peripheral cross sections of mass including cortical surface (no gross penetration of capsule seen); A6-A8 - mass and renal pelvis; A9 - mass with renal vessels; A10 - renal pelvis and vessels from hilum; A11 - additional cross section of renal hilum and mass; A12 - account service representative renal cortex and medulla (adjacent to mass near hilum); A13 - ureteral margin. (ACP:adj) Electronically Signed by: Rosi Kelley M.D.
== END 2018-08-10 10:50 | disposition home or self-care (01) | DRG 656 ==
LOC: ICU 05:26 → MEDSUR 08-09 10:55

== ENCOUNTER 2018-11-18 09:44 | Inpatient (IN) ==
[2018-11-18] MEDS ORDERED: FUROSEMIDE 40 MG/4 ML VIAL IV ONE (09:50)
[2018-11-18] MEDS ORDERED: ALBUTEROL SULFATE 5 MG/ML NEB SOLUTION BOTTLE NEB ONE (09:50)
[2018-11-18] MEDS ORDERED: CALCIUM CHLORIDE 1,000 MG/10 ML SYRINGE IV ONE (09:50)
[2018-11-18] MEDS ORDERED: SODIUM POLYSTYRENE SULFONATE 15 GM/60 ML SUSPENSION PO ONE (09:50)
[2018-11-18] MEDS ORDERED: 0.9 % SODIUM CHLORIDE 1,000 ML IV ONE (09:55)
--- NOTE | 2018-11-18 10:02 | Emergency Department Note ---
General Adult HPI - General Chief complaint: Recheck/Abnormal Lab/Rx Stated complaint: hyperkalemia Time Seen by Provider: 11/18/18 09:46 Source: patient Mode of arrival: other Limitations: no limitations - History of Present Illness HPI Narrative: 68-year-old male reports for surgery today was found to have high potassium and elevated creatinine is sent here for further evaluation and treatment. He previously had a nephrectomy done approximately 4 months ago and has had postoperative infection but now requires debridement and wound VAC. He is not having significant pain or shortness of breath today. Unclear if he is had a fever - Related Data Home Medications Medication Instructions Recorded Confirmed albuterol sulfate 90 mcg/actuation 2 puff INHALATION QIDP PRN 06/10/18 11/18/18 aerosol inhaler allopurinol 100 mg tablet 100 mg PO QDAY 06/10/18 11/18/18 budesonide-formoterol HFA 160 2 puff INHALATION BID 06/10/18 11/18/18 mcg-4.5 mcg/actuation aerosol inhaler cholecalciferol (vitamin D3) 5,000 5,000 unit PO QDAY 06/10/18 11/18/18 unit capsule glipizide 5 mg tablet 5 mg PO BIDAC tab 06/10/18 11/18/18 losartan 25 mg tablet 25 mg PO QDAY 06/10/18 11/18/18 metformin 850 mg tablet 850 mg PO BIDCC 06/10/18 11/18/18 pregabalin 75 mg capsule 75 mg PO BID 06/10/18 11/18/18 Ascorbic Acid [Vitamin C] 500 mg PO DAILY 07/31/18 11/18/18 Previous Rx's Medication Instructions Recorded sulfamethoxazole 800 1 tab PO BID #30 tab 11/11/18 mg-trimethoprim 160 mg tablet Allergies Allergy/AdvReac Type Severity Reaction Status Date / Time pepper (genus Capsicum) Allergy Severe Difficulty Verified 11/18/18 07:39 Breathing codeine Allergy Mild Rash Verified 11/18/18 07:39 hydrocodone Allergy Mild Rash Verified 11/18/18 07:39 Penicillins Allergy Mild Rash Verified 11/18/18 07:39 black walnut AdvReac Mild Vomiting Verified 11/18/18 07:39 lisinopril AdvReac Mild Cough Verified 11/18/18 07:39 Review of Systems All systems ED: reviewed and negative except as stated. Past Medical History - Past Medical History Attestation: Yes: The following information was validated with the patient. 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 Normocephalic atraumatic. Conjunctive are clear sclera white anicteric. No nasal discharge or congestion. Oropharynx is pink and moist. Neck is supple without lymphadenopathy thyromegaly or carotid bruit. Heart regular rate and rhythm no murmur appreciated. Lungs are clear to auscultation but without wheezes rales rhonchi or respiratory distress. Abdomen soft nontender nondistended. Nephrectomy wound site left upper belly. Mild erythema around that area is bandaged. Limitations: no limitations Course Vital Signs Temperature 97.9 F 11/18/18 09:45 Pulse Rate 65 11/18/18 09:45 Respiratory Rate 21 11/18/18 09:45 Blood Pressure 145/76 11/18/18 09:45 Pulse Oximetry (%) 99 11/18/18 09:45 Temperature 97.9 F 11/18/18 09:45 Pulse Rate 89 11/18/18 11:09 Respiratory Rate 20 11/18/18 11:09 Blood Pressure 149/57 11/18/18 11:02 Pulse Oximetry (%) 98 11/18/18 11:09 Medical Decision Making - Lab Data Lab results reviewed: Yes I reviewed the patient's lab results. Result diagrams: 11/18/18 09:58 11/18/18 09:58 Lab Results 11/18/18 11/18/18 11/18/18 Range/Units 09:58 09:58 09:58 WBC 14.4 H (4.5-11.0) K/mcL RBC 3.91 L (4.50-5.90) M/mcL Hgb 10.7 L (13.5-16.5) g/dL Hct 33.1 L (41.0-55.0) % POC Hct 33.0 L (41.0-55.0) % MCV 84.6 (80.0-100.0) fL MCH 27.4 (26.0-34.0) pg MCHC 32.4 (31.0-36.0) g/dL RDW 16.2 H (11.5-14.5) % Plt Count 371 (140-440) K/mcL MPV 7.6 (7.4-10.4) fL Gran % 79.3 H (38.0-78.0) % Lymph % (Auto) 14.5 L (15.5-49.0) % [place] % (Auto) 4.3 (1.0-12.0) % Eos % (Auto) 1.5 (0.0-7.0) % Baso % (Auto) 0.4 (0.0-2.0) % Gran # 11.4 H (1.8-8.0) K/mcL Lymph # (Auto) 2.1 (1.5-4.8) K/mcL [place] # (Auto) 0.6 (0.1-0.9) K/mcL Eos # (Auto) 0.2 (0.0-0.7) K/mcL Baso # (Auto) 0.1 (0.0-0.3) K/mcL VBG Lactic Acid 0.9 (0.5-2.0) mmol/L POC Sodium 136 (133-145) mmol/L Sodium 137 (133-145) mmol/L POC Potassium 7.4 H* (3.3-5.1) mmol/L Potassium 7.4 H* (3.3-5.1) mmol/L POC Chloride 114 H (96-108) mmol/L Chloride 110 H (96-108) mmol/L Carbon Dioxide 14 L (22-30) mmol/L POC Total CO2 16 L (22-30) mmol/L Anion Gap 13.0 (8-16) POC BUN 45 H (8-23) mg/dl BUN 48 H (8-23) mg/dl Creatinine 3.2 H (0.7-1.2) mg/dl POC Creatinine 3.8 H (0.7-1.2) mg/dl GFR Calculation 19 Glucose 105 (70-105) mg/dL POC Glucose 102 (70-105) mg/dL Calcium 9.6 (8.6-10.4) mg/dl POC WB Ioniz Calcium 1.28 (1.16-1.32) mmol/L Magnesium 1.3 L (1.6-2.5) mg/dL Total Bilirubin < 0.2 (0.0-1.0) mg/dL AST 13 (0-37) U/l ALT 12 (0-40) U/l Alkaline Phosphatase 71 (39-117) U/L Total Protein 7.1 (5.9-8.4) gm/dL Albumin 4.0 (3.2-5.2) gm/dL Globulin 3.1 (2.2-3.7) gm/dL Albumin/Globulin Ratio 1.3 (1.0-2.3) Lipase 47 (7-60) U/L Procalcitonin (<0.10) ng/mL Urine Color Urine Appearance Urine pH (5.0-9.0) Ur Specific Nelson (1.000-1.035) Urine Protein (NEG) mg/dL Urine Glucose (UA) (NEG) mg/dL Urine Ketones (NEG) mg/dL Urine Occult Blood (<0.03) mg/dL Urine Nitrate (NEG) Urine Bilirubin (NEG) mg/dL Urine Urobilinogen (NEG) mg/dL Ur Leukocyte Esterase (NEG) /uL Urine RBC (0-1) /hpf Urine WBC (0-4) /hpf Ur Squamous Epith Cells (0-4) /hpf Ur Transition Epith Cell (0-2) /hpf Urine Bacteria (0) /hpf Urine Mucus (0) /hpf Ur Culture Indicated? 11/18/18 11/18/18 Range/Units 09:58 Unknown WBC (4.5-11.0) K/mcL RBC (4.50-5.90) M/mcL Hgb (13.5-16.5) g/dL Hct (41.0-55.0) % POC Hct (41.0-55.0) % MCV (80.0-100.0) fL MCH (26.0-34.0) pg MCHC (31.0-36.0) g/dL RDW (11.5-14.5) % Plt Count (140-440) K/mcL MPV (7.4-10.4) fL Gran % (38.0-78.0) % Lymph % (Auto) (15.5-49.0) % [place] % (Auto) (1.0-12.0) % Eos % (Auto) (0.0-7.0) % Baso % (Auto) (0.0-2.0) % Gran # (1.8-8.0) K/mcL Lymph # (Auto) (1.5-4.8) K/mcL [place] # (Auto) (0.1-0.9) K/mcL Eos # (Auto) (0.0-0.7) K/mcL Baso # (Auto) (0.0-0.3) K/mcL VBG Lactic Acid (0.5-2.0) mmol/L POC Sodium (133-145) mmol/L Sodium (133-145) mmol/L POC Potassium (3.3-5.1) mmol/L Potassium (3.3-5.1) mmol/L POC Chloride (96-108) mmol/L Chloride (96-108) mmol/L Carbon Dioxide (22-30) mmol/L POC Total CO2 (22-30) mmol/L Anion Gap (8-16) POC BUN (8-23) mg/dl BUN (8-23) mg/dl Creatinine (0.7-1.2) mg/dl POC Creatinine (0.7-1.2) mg/dl GFR Calculation Glucose (70-105) mg/dL POC Glucose (70-105) mg/dL Calcium (8.6-10.4) mg/dl POC WB Ioniz Calcium (1.16-1.32) mmol/L Magnesium (1.6-2.5) mg/dL Total Bilirubin (0.0-1.0) mg/dL AST (0-37) U/l ALT (0-40) U/l Alkaline Phosphatase (39-117) U/L Total Protein (5.9-8.4) gm/dL Albumin (3.2-5.2) gm/dL Globulin (2.2-3.7) gm/dL Albumin/Globulin Ratio (1.0-2.3) Lipase (7-60) U/L Procalcitonin < 0.05 (<0.10) ng/mL Urine Color Straw Urine Appearance Clear Urine pH 6.0 (5.0-9.0) Ur Specific Nelson 1.009 (1.000-1.035) Urine Protein 30 A (NEG) mg/dL Urine Glucose (UA) Negative (NEG) mg/dL Urine Ketones Neg (NEG) mg/dL Urine Occult Blood Neg (<0.03) mg/dL Urine Nitrate Neg (NEG) Urine Bilirubin Neg (NEG) mg/dL Urine Urobilinogen Neg (NEG) mg/dL Ur Leukocyte Esterase Neg (NEG) /uL Urine RBC < 1 (0-1) /hpf Urine WBC 1 (0-4) /hpf Ur Squamous Epith Cells 0 (0-4) /hpf Ur Transition Epith Cell < 1 (0-2) /hpf Urine Bacteria 0 (0) /hpf Urine Mucus Few (0) /hpf Ur Culture Indicated? No - EKG Data EKG #1 EKG attestation: Yes I reviewed and interpreted this EKG., Yes There are no EKG findings of acute coronary syndrome, Yes This EKG will be read by salt cutter EKG results narrative: EKG shows a rate of 62 right bundle branch block but otherwise normal sinus rhythm Disposition Pt seen by SCREWDOWN OPERATOR/PA only: No Clinical Impression: Hyperkalemia, Hypomagnesemia Kidney failure Qualifiers: Renal failure chronicity: acute on chronic Acute renal failure type: unspecified Chronic kidney disease stage: unspecified stage Qualified Code(s): N17.9 - Acute kidney failure, unspecified Summary: On review of his laboratory potassium level was 6.6 here this morning-on recheck POC was 7.6. Creatinine was elevated as well. Start IV fluids recheck laboratory. We will get an EKG and start treatment for lowering potassium including furosemide with a Major catheter, IV calcium and albuterol. At this time he is asymptomatic We ended up giving him a little bit of insulin and D50 as well. Magnesium was low so mag rider was ordered as well I discussed the case with Dr. Ramirez, our hospitalist, who agreed to accept the patient for further care and evaluation in the hospital Disposition: Xfer As Inpt ([facility]) Condition: Serious Referrals: Lucien Mehta ARNP [Primary Care Provider] -
[2018-11-18 10:10] LABS: POC Blood Urea Nitrogen 45 mg/dl (8-23); POC CO2 16 mmol/L (22-30); POC Calcium, Ionized 1.28 mmol/L (1.16-1.32); POC Chloride 114 mmol/L (96-108); POC Creatinine 3.8 mg/dl (0.7-1.2); POC Glucose, Random 102 mg/dL (70-105); POC Potassium 7.4 mmol/L (3.3-5.1); POC Sodium 136 mmol/L (133-145)
[2018-11-18 10:38] LABS: Basophils # (Auto) 0.1 K/mcL (0.0-0.3); Basophils % (Auto) 0.4 % (0.0-2.0); Eosinophils # (Auto) 0.2 K/mcL (0.0-0.7); Eosinophils % (Auto) 1.5 % (0.0-7.0); Granulocytes % (Auto) 79.3 % (38.0-78.0); Hematocrit 33.1 % (41.0-55.0); Hemoglobin 10.7 g/dL (13.5-16.5); Lymphocytes # (Auto) 2.1 K/mcL (1.5-4.8); Lymphocytes % (Auto) 14.5 % (15.5-49.0); Mean Cell Volume 84.6 fL (80.0-100.0); Mean Corpuscular HGB Conc 32.4 g/dL (31.0-36.0); Mean Platelet Volume 7.6 fL (7.4-10.4); Monocytes # (Auto) 0.6 K/mcL (0.1-0.9); Monocytes % (Auto) 4.3 % (1.0-12.0); Platelet Count 371 K/mcL (140-440); RBC 3.91 M/mcL (4.50-5.90); Red Cell Distribution Width 16.2 % (11.5-14.5); WBC 14.4 K/mcL (4.5-11.0)
[2018-11-18] MEDS ORDERED: INSULIN REGULAR, HUMAN 1 UNIT/0.01 ML UNIT IV ONE (10:44)
[2018-11-18] MEDS ORDERED: DEXTROSE 50% 50 ML VIAL IV ONE (10:44)
[2018-11-18 11:01] LABS: ALT/SGPT 12 U/l (0-40); AST/SGOT 13 U/l (0-37); Albumin/Globulin Ratio 1.3 (1.0-2.3); Alkaline Phosphatase 71 U/L (39-117); Bilirubin,Total < 0.2 mg/dL (0.0-1.0); Blood Urea Nitrogen 48 mg/dl (8-23); Calcium 9.6 mg/dl (8.6-10.4); Carbon Dioxide 14 mmol/L (22-30); Chloride 110 mmol/L (96-108); Globulin 3.1 gm/dL (2.2-3.7); Glomerular Filtration Rate 19; Glucose 105 mg/dL (70-105)
[2018-11-18] MEDS ORDERED: DEXTROSE 50% 50 ML SYRINGE IV ONE (11:02)
[2018-11-18] MEDS ORDERED: 0.9 % SODIUM CHLORIDE 1,000 ML IV SCH ×2 (11:30→13:32)
[2018-11-18 11:49] LABS: Appearance,Urine CLEAR; Bacteria,Urine 0 /hpf (0); Bilirubin,Urine NEG (NEG); Color,Urine STRAW; Culture Indicated,Urine NO; Glucose,Urine (UA) NEGATIVE (NEG); Ketones,Urine NEG (NEG); Leukocyte Esterase,Urine NEG /uL (NEG); Mucus,Urine FEW /hpf (0); Nitrate,Urine NEG (NEG); Protein,Urine 30 mg/dL (NEG); Specific Gravity,Urine 1.009 (1.000-1.035); Urine Blood NEG mg/dL (<0.03); Urine RBC < 1 /hpf (0-1); Urine Squamous Epithelial Cell 0 /hpf (0-4); Urine Transitional Epi Cells < 1 /hpf (0-2); Urine WBC 1 /hpf (0-4); Urobilinogen,Urine NEG (NEG)
[2018-11-18] MEDS ORDERED: MAGNESIUM SULFATE 2 GM/50 ML BAG IV ONE (12:07)
[2018-11-18 12:16] LABS: POC Blood Urea Nitrogen 42 mg/dl (8-23); POC CO2 16 mmol/L (22-30); POC Calcium, Ionized 1.33 mmol/L (1.16-1.32); POC Chloride 114 mmol/L (96-108); POC Creatinine 3.6 mg/dl (0.7-1.2); POC Glucose, Random 200 mg/dL (70-105); POC Potassium 5.5 mmol/L (3.3-5.1); POC Sodium 138 mmol/L (133-145)
--- NOTE | 2018-11-18 12:36 | Internal Med History&Physical ---
Medical - H&P: HPI Patient information: Note initiated : 11/18/18 at 12:33 pm Service Date, if different from initiated Date: [] Patient: Anival Cabezas a 68 y/o M admitted on for hyperkalemia. Chief Complaint: [] History of present illness: Mr. Cabezas is a 68 year old M This is a 67-year-old gentleman with a history of type 2 diabetes, hypertension and recently diagnosed renal cell carcinoma status post left nephrectomy in July 2018. During the hospital stay patient noticed to have hyperkalemia with a potassium 6.4 which was treated with a Lasix and patient further treatment his potassium came down. Patient was on losartan and naproxen told to be the reason for hyperkalemia at that time and he was discharged. He followed up in the urology clinic and found to have a left abdominal superficial wound infection at the site of drainage. Wound for which he was started on Bactrim which was continued as his infection seems to be under control. I could not find any wound culture in the system. He was brought to the hospital for incision and drainage of the wound but found to have a potassium of 6.6 in the preop he was then transferred to the ER. In the ER they repeated the potassium which was 7.4 and was started on hyperkalemia protocol with insulin dextrose, albuterol, Lasix, IV fluid resuscitation received 1.5 L and continued 150 mils per hour. No EKG changes and received calcium gluconate upon admission. Telemetry remained unremarkable in the ER other than occasional tachycardia. Patient is asymptomatic no abdominal symptoms no muscle symptoms. His white count was elevated 15,000 but no features of sepsis. He will be admitted to ICU for critical hyperkalemia and acute renal failure - Constitutional Constitutional: Absent: anorexia, chills, fatigue, fever(s), frequent falls - EENT Ears: Absent: ear discharge, ear pain, tinnitus Nose, mouth and throat: Absent: abnormal hearing, bleeding gums, change in voice, dental pain - Cardiovascular Cardiovascular: Absent: acrocyanosis, chest pain, claudication, diaphoresis, d yspnea, leg edema - Respiratory Respiratory: Absent: cough, dyspnea, hemoptysis, dyspnea on exertion, wheezing, snoring - Gastrointestinal Gastrointestinal: Absent: abdominal pain, belching, constipation, cramping, diarrhea, dyspepsia, dysphagia, early satiety - Genitourinary Genitourinary: Absent: change in urinary stream, difficulty urinating, dysuria, hematuria - Musculoskeletal Musculoskeletal: Present: arthralgias, back pain. Absent: abnormal gait, deformity - Neurological Neurological: Absent: abnormal gait, abnormal hearing, abnormal movements, abnormal speech, behavioral changes, burning sensations, confusion - Psychiatric Psychiatric: Absent: abnormal sleep pattern, anhedonia, anxiety, auditory hallucinations - Endocrine Endocrine: Absent: deeping of the voice, excessive sweating, fatigue - Hematologic/Lymphatic Hematologic/Lymphatic: Absent: easy bleeding, easy bruising, lymphadenopathy Medical - H&P: [facility] Medical history: Medical History (Last Reviewed 11/14/18 @ 10:41 by Constance Blake RN) Dysuria (Chronic) Abdominal pain (Chronic) Urinary urgency (Chronic) Urine frequency (Chronic) Pain with urination (Chronic) Benign essential hypertension (Chronic) Chronic obstructive lung disease (Chronic) Diabetes mellitus (Chronic) Open angle with borderline findings, 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) Chronic cough (Chronic) Diabetic peripheral neuropathy (Chronic) Tinnitus (Chronic) Gout (Chronic) Obesity (Chronic) Diabetes mellitus type 2 without retinopathy (Chronic) Age related cataract (Chronic) 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) Well adult (Chronic) Hyperlipidemia (Chronic) Osteoarthritis (Chronic) Surgical history: Past Surgical History (Last Reviewed 11/14/18 @ 10:41 by Constance Blake RN) History of right hip replacement (Acute) History of right shoulder replacement (Acute) Hx of appendectomy (Acute) History of colonoscopy (Chronic) Pertinent family history: Family History (Last Reviewed 11/14/18 @ 10:41 by Constance Blake RN) Other Cancer Diabetes HTN (hypertension) Heart attack Kidney stone Social history: Social History (Last Updated 11/14/18 @ 11:20 by Channing Grubbs MD) No Social History Section defined Functional capacity: independent ambulation Medical - H&P: Meds Home Medications Medication Instructions Recorded Confirmed Type albuterol sulfate 90 mcg/actuation 2 puff INHALATION QIDP PRN 06/10/18 11/18/18 History aerosol inhaler allopurinol 100 mg tablet 100 mg PO QDAY 06/10/18 11/18/18 History budesonide-formoterol HFA 160 2 puff INHALATION BID 06/10/18 11/18/18 History mcg-4.5 mcg/actuation aerosol inhaler cholecalciferol (vitamin D3) 5,000 5,000 unit PO QDAY 06/10/18 11/18/18 History unit capsule glipizide 5 mg tablet 5 mg PO BIDAC tab 06/10/18 11/18/18 History losartan 25 mg tablet 25 mg PO QDAY 06/10/18 11/18/18 History pregabalin 75 mg capsule 75 mg PO BID 06/10/18 11/18/18 History Ascorbic Acid [Vitamin C] 500 mg PO DAILY 07/31/18 11/18/18 History sulfamethoxazole 800 1 tab PO BID #30 tab 11/11/18 11/18/18 Rx mg-trimethoprim 160 mg tablet Allergies Allergy/AdvReac Type Severity Reaction Status Date / Time pepper (genus Capsicum) Allergy Severe Difficulty Verified 11/18/18 07:39 Breathing codeine Allergy Mild Rash Verified 11/18/18 07:39 hydrocodone Allergy Mild Rash Verified 11/18/18 07:39 Penicillins Allergy Mild Rash Verified 11/18/18 07:39 black walnut AdvReac Mild Vomiting Verified 11/18/18 07:39 lisinopril AdvReac Mild Cough Verified 11/18/18 07:39 Medical - H&P: Exam - Constitutional Vitals: Temp Pulse Resp BP Pulse Ox 97.9 F 95 H 18 102/58 92 11/18/18 09:45 11/18/18 12:17 11/18/18 12:17 11/18/18 12:17 11/18/18 12:17 General appearance: no acute distress, obese - Head Head exam: Present: atraumatic, normal inspection, normocephalic - Expanded Head Exam Head exam: Absent: abrasion, Wesley's sign, contusion, general tenderness, hematoma - Eye Eye exam: Present: normal appearance. Absent: conjunctival injection, nystagmus, periorbital swelling - ENT ENT exam: Present: mucous membranes dry, normal exam, normal external ear exam, normal oropharynx - Expanded ENT Exam Ear exam: Absent: auricular hematoma, auricular trauma Nose & sinuses exam: Present: external nose, grossly normal, nasal mucusa, septum and turbinates normal, sinuses non tender to palpatation Mouth exam: Present: dry mucosa. Absent: drooling, laceration Teeth exam: Present: dental caries Throat exam: Present: normal inspection. Absent: post pharyngeal erythema - Neck Neck exam: Present: full ROM. Absent: meningismus, tenderness, thyromegaly - Expanded Neck Exam Neck exam: Absent: tenderness - Respiratory Respiratory exam: Present: normal respiratory exam. Absent: accessory muscle use, rales, respiratory distress, rhonchi, stridor, wheezes - Cardiovascular Cardiovascular exam: Present: tachycardia. Absent: bradycardia, diastolic murmur, irregular rhythm, systolic murmur - GI/Abdominal GI/Abdominal exam: Present: normal bowel sounds, soft, distended - exam: Present: normal inspection (Major catheter in place). Absent: scrotal swelling, urethral discharge - Expanded Exam Male exam: Present: balanitis - Extremities Exam Extremities exam: Present: normal inspection. Absent: calf tenderness, pedal edema - Neurological Exam Neurological exam: Present: alert, oriented X3. Absent: abnormal gait - Skin Skin exam: Present: erythema (Left abdominal wound, dressing in place, no discharge, no significant erythema, no tenderness,) Medical - H&P: Reslt - Labs CBC & Chem 7: 11/18/18 09:58 11/18/18 09:58 Labs: Short CBC 11/18/18 Range/Units 09:58 WBC 14.4 H (4.5-11.0) K/mcL Hgb 10.7 L (13.5-16.5) g/dL Hct 33.1 L (41.0-55.0) % Plt Count 371 (140-440) K/mcL BMP 11/18/18 09:58 Sodium 137 Potassium 7.4 H* Chloride 110 H Carbon Dioxide 14 L BUN 48 H Creatinine 3.2 H Glucose 105 Calcium 9.6 Liver Function 11/18/18 Range/Units 09:58 Total Bilirubin < 0.2 (0.0-1.0) mg/dL AST 13 (0-37) U/l ALT 12 (0-40) U/l Alkaline Phosphatase 71 (39-117) U/L Albumin 4.0 (3.2-5.2) gm/dL Urine 11/18/18 Range/Units Unknown Urine Color Straw Urine Appearance Clear Urine pH 6.0 (5.0-9.0) Ur Specific [place] 1.009 (1.000-1.035) Urine Protein 30 A (NEG) mg/dL Urine Glucose (UA) Negative (NEG) mg/dL Medical - H&P: A/P - Narrative A/P Narrative: Critical hyperkalemia Probably due to Bactrim losartan, dehydration and renal failure Potassium of 7.4 Received albuterol, insulin dextrose and Kayexalate in the ER No EKG changes, received calcium gluconate Plan Continue IV fluids normal saline 150 mils per hour Recheck potassium every 4 hour Continue Kayexalate 30 twice daily playground monitor ICU status Acute renal failure probably due to medications and dehydration Creatinine 3.2 with a baseline around 2.4 Monitor urine output Telemetry monitoring Elect light monitoring Continue IV fluids 150 mils per hour Left abdominal superficial wound infection He still has leukocytosis 15,000 No features of sepsis We will start him on clindamycin 600 3 times daily Type 2 diabetes We will hold the glipizide because of the renal failure Sliding scale insulin Recent left nephrectomy He has a Major catheter Monitor urine output Ultrasound renal if needed Essential hypertension Monitor blood pressure and restart home medication as needed We will discontinue losartan as he seems to have high normal potassium DVT prophylaxis-subcu heparin CODE STATUS-full code
[2018-11-18] MEDS ORDERED: ACETAMINOPHEN 325 MG TABLET PO PRN (13:32)
[2018-11-18] MEDS ORDERED: DEXTROSE 50% 50 ML VIAL IV PRN (13:32)
[2018-11-18] MEDS ORDERED: DEXTROSE 31 GM ORAL.SUSP PO PRN (13:32)
[2018-11-18] MEDS ORDERED: ONDANSETRON 4 MG/2 ML VIAL IV PRN (13:32)
[2018-11-18] MEDS: 0.9 % SODIUM CHLORIDE 1,000 ML IV SCH ×2 (14:13→23:41)
[2018-11-18] MEDS: CLINDAMYCIN 600 MG in DEXTROSE 5% IN WATER 50 ML IV SCH ×3 (14:46→22:13)
[2018-11-18] MEDS: ALBUTEROL SULFATE 2.5 MG/3 ML NEBULIZER NEB SCH ×3 (15:09→22:53)
[2018-11-18] MEDS: 0.9 % SODIUM CHLORIDE 10 ML SYRINGE IV SCH ×2 (15:41→22:18)
[2018-11-18 15:56] LABS: ALT/SGPT 12 U/l (0-40); AST/SGOT 14 U/l (0-37); Albumin 3.9 gm/dL (3.2-5.2); Albumin/Globulin Ratio 1.3 (1.0-2.3); Alkaline Phosphatase 68 U/L (39-117); Bilirubin,Total 0.2 mg/dL (0.0-1.0); Blood Urea Nitrogen 46 mg/dl (8-23); C-Reactive Protein 0.8 mg/dl (0.0-0.8); Calcium 9.6 mg/dl (8.6-10.4); Carbon Dioxide 15 mmol/L (22-30); Chloride 108 mmol/L (96-108); Glomerular Filtration Rate 17; Glucose 149 mg/dL (70-105); Thyroid Stimulating Hormone 2.02 uIU/ml (0.27-5.01)
[2018-11-18] MEDS: INSULIN LISPRO 1 UNIT/0.01 ML UNIT SQ SCH ×2 (17:46→20:18)
[2018-11-18] MEDS: SODIUM POLYSTYRENE SULFONATE 15 GM/60 ML SUSPENSION PO SCH (20:17)
[2018-11-18] MEDS: HEPARIN 5,000 UNIT/ML VIAL SQ SCH (20:17)
[2018-11-18] MEDS: DOCUSATE SODIUM 100 MG CAPSULE PO SCH (20:18)
[2018-11-18 21:09] LABS: Blood Urea Nitrogen 47 mg/dl (8-23); Calcium 9.3 mg/dl (8.6-10.4); Carbon Dioxide 17 mmol/L (22-30); Chloride 105 mmol/L (96-108); Glomerular Filtration Rate 17; Glucose 252 mg/dL (70-105)
[2018-11-18 22:46] LABS: Blood Urea Nitrogen 48 mg/dl (8-23); Calcium 9.1 mg/dl (8.6-10.4); Carbon Dioxide 18 mmol/L (22-30); Chloride 104 mmol/L (96-108); Glomerular Filtration Rate 17; Glucose 177 mg/dL (70-105)
[2018-11-19] MEDS: ALBUTEROL SULFATE 2.5 MG/3 ML NEBULIZER NEB SCH ×2 (02:43→06:49)
[2018-11-19 04:58] LABS: Hematocrit 29.3 % (41.0-55.0); Hemoglobin 9.5 g/dL (13.5-16.5); Mean Cell Volume 85.6 fL (80.0-100.0); Mean Corpuscular HGB Conc 32.3 g/dL (31.0-36.0); Mean Platelet Volume 7.6 fL (7.4-10.4); Platelet Count 313 K/mcL (140-440); RBC 3.43 M/mcL (4.50-5.90); Red Cell Distribution Width 16.5 % (11.5-14.5)
[2018-11-19 05:28] LABS: ALT/SGPT 9 U/l (0-40); AST/SGOT 11 U/l (0-37); Albumin 3.4 gm/dL (3.2-5.2); Albumin/Globulin Ratio 1.3 (1.0-2.3); Alkaline Phosphatase 62 U/L (39-117); Bilirubin,Total 0.2 mg/dL (0.0-1.0); Blood Urea Nitrogen 45 mg/dl (8-23); Calcium 8.8 mg/dl (8.6-10.4); Carbon Dioxide 17 mmol/L (22-30); Chloride 108 mmol/L (96-108); Globulin 2.7 gm/dL (2.2-3.7); Glomerular Filtration Rate 18; Glucose 174 mg/dL (70-105)
[2018-11-19] MEDS: CLINDAMYCIN 600 MG in DEXTROSE 5% IN WATER 50 ML IV SCH ×3 (05:38→21:22)
[2018-11-19] MEDS: 0.9 % SODIUM CHLORIDE 10 ML SYRINGE IV SCH ×3 (05:53→21:22)
[2018-11-19] MEDS ORDERED: ALBUTEROL SULFATE 2.5 MG/3 ML NEBULIZER NEB PRN ×2 (07:00→12:15)
[2018-11-19 07:45] LABS: Anisocytosis 1+ (NONE SEEN); Basophils % (Manual) 1 % (0-2); Eosinophils % (Manual) 1 % (0-7); Lymphocytes % 17 % (15-49); Monocytes % (Manual) 7 % (1-12); Platelet Estimate NORMAL (NORMAL); RBC Morphology ABNORM (NORMAL); Segmented Neutrophils % 74 % (38-78)
[2018-11-19] MEDS: 0.9 % SODIUM CHLORIDE 1,000 ML IV SCH ×2 (07:54→19:13)
[2018-11-19] MEDS: DOCUSATE SODIUM 100 MG CAPSULE PO SCH ×2 (08:01→20:15)
[2018-11-19] MEDS: HEPARIN 5,000 UNIT/ML VIAL SQ SCH ×2 (08:01→20:15)
[2018-11-19] MEDS: SODIUM POLYSTYRENE SULFONATE 15 GM/60 ML SUSPENSION PO SCH ×2 (08:02→21:19)
[2018-11-19] MEDS ORDERED: MAGNESIUM SULFATE 2 GM/50 ML BAG IV ONE (08:08)
[2018-11-19] MEDS: INSULIN LISPRO 1 UNIT/0.01 ML UNIT SQ SCH ×4 (08:10→21:20)
--- NOTE | 2018-11-19 11:44 | Internal Med Progress Note ---
Medical - PN: Subj Patient information: Note initiated : 11/19/18 at 11:42 am Service Date, if different from initiated Date: [] Patient: Anival Cabezas 68 y/o M admitted on 11/18/18 for hyperkalemia. Chief Complaint: [] Interval history: 67-year-old gentleman was admitted with a 6 critical hyperkalemia potassium 7.4 received initial hyperkalemia protocol and then continued Kayexalate his potassium improved to 5.7 this is most likely due to medications losartan and Bactrim. He is also pending incision and drainage of his left abdominal wound from drainage placement. He is on clindamycin 600 3 times daily for that. He was also having acute renal failure with a creatinine 3.5 and baseline 2.5 on IV fluids. 11/19-his potassium improving 5.7 we will continue to monitor recheck potassium this afternoon. Continue antibiotic clindamycin for the superficial abdominal wound and pending incision and drainage tomorrow by urology. 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: General appearance-patient is symptomatic alert oriented not in any distress Respiratory-no shortness of breath no wheezing CVS-no chest pain no palpitations Abdominal-distended but no pain no urine symptoms Urinary-denied any discharge Major catheter in place Neurology-denied any motor or sensory deficit alert oriented x3 - Constitutional Vitals: Vital Signs Temp Pulse Resp BP Pulse Ox 97.6 F 68 25 H 128/59 98 11/19/18 05:00 11/19/18 07:02 11/19/18 08:07 11/19/18 07:02 11/19/18 07:02 Period Temp Pulse Resp BP Sys/Tapia Pulse Ox Last 24 Hr 97.4 F-98.6 F 66-102 9-30 70-141/35-86 90-100 Intake and Output 11/18/18 11/19/18 11/19/18 21:59 05:59 13:59 Intake Total 413 495 2909 Output Total 1820 815 645 Balance -1496 -521 716 Weight 250 lb Intake & Output: Intake & Output 11/18/18 11/19/18 11/19/18 21:59 05:59 13:59 Intake Total 620 596 0553 Output Total 1820 815 645 Balance -1496 -521 716 Weight 250 lb Intake: IV 84 54 1041 Sodium Chloride 0.9% 1,000 ml @ 937 100 mls/hr IV .Q10H RENEE Rx#: [id number] Cleocin 600 mg In Dextrose 5% 54 54 54 in Water 50 ml @ 100 mls/hr IV Q8H RENEE Rx#:[id number] Oral 240 240 320 Output: Urine Catheter Amount 1820 715 645 Stool 100 Other: Meal Dinner Breakfast Percent of Meal Consumed 100% 100% Feeding Ability Independent Urine Appearance Clear Clear Clear Uretheral (Major) Clear Clear Cloudy Urine Color Bright Yellow Bright Yellow Bright Yellow Uretheral (Major) Pale Pale Dark Yellow Bright Yellow Bright Yellow Stool Size Small Small Large Stool Color Brown Brown Brown Yellow Stool Consistency Loose Soft Watery Loose # Bowel Movements 1 1 1 General appearance: cooperative, no acute distress, obese - Head Head exam: Present: atraumatic, normal inspection, normocephalic - Eye Eye exam: Present: normal appearance. Absent: conjunctival injection, nystagmus - ENT ENT exam: Present: mucous membranes moist, normal exam, normal external ear exam - Neck Neck exam: Present: full ROM, normal inspection. Absent: lymphadenopathy - Respiratory Respiratory exam: Present: normal respiratory exam. Absent: accessory muscle use, chest wall tenderness, decreased breath sounds, rhonchi, stridor - Cardiovascular Cardiovascular exam: Absent: bradycardia, irregular rhythm, systolic murmur, tachycardia - GI/Abdominal GI/Abdominal exam: Present: normal bowel sounds, soft, distended. Absent: guarding - Neurological Exam Neurological exam: Present: alert, oriented X3. Absent: motor sensory deficit Medical - PN: Obj Da - Labs CBC & Chem 7: 11/19/18 03:50 11/19/18 03:50 Labs: Abnormal Lab Results 11/19/18 11/19/18 11/18/18 03:50 03:50 Unknown WBC 12.0 H RBC 3.43 L Hgb 9.5 L Hct 29.3 L POC Hct RDW 16.5 H Gran % Lymph % (Auto) Gran # RBC Morphology Abnorm A Anisocytosis 1+ A POC Potassium Potassium 5.7 H POC Chloride Chloride Carbon Dioxide 17 L POC Total CO2 POC BUN BUN 45 H Creatinine 3.3 H POC Creatinine Glucose 174 H POC Glucose POC WB Ioniz Calcium Magnesium 1.5 L Urine Protein 30 A 11/18/18 11/18/18 11/18/18 21:31 17:28 13:45 WBC RBC Hgb Hct POC Hct RDW Gran % Lymph % (Auto) Gran # RBC Morphology Anisocytosis POC Potassium Potassium 5.9 H* 6.1 H* 6.0 H* POC Chloride Chloride Carbon Dioxide 18 L 17 L 15 L POC Total CO2 POC BUN BUN 48 H 47 H 46 H Creatinine 3.5 H 3.4 H 3.5 H POC Creatinine Glucose 177 H 252 H 149 H POC Glucose POC WB Ioniz Calcium Magnesium Urine Protein 11/18/18 11/18/18 11/18/18 11:57 09:58 09:58 WBC 14.4 H RBC 3.91 L Hgb 10.7 L Hct 33.1 L POC Hct 33.0 L 33.0 L RDW 16.2 H Gran % 79.3 H Lymph % (Auto) 14.5 L Gran # 11.4 H RBC Morphology Anisocytosis POC Potassium 5.5 H 7.4 H* Potassium 7.4 H* POC Chloride 114 H 114 H Chloride 110 H Carbon Dioxide 14 L POC Total CO2 16 L 16 L POC BUN 42 H 45 H BUN 48 H Creatinine 3.2 H POC Creatinine 3.6 H 3.8 H Glucose POC Glucose 200 H POC WB Ioniz Calcium 1.33 H Magnesium 1.3 L Urine Protein Meds: Medications Acetaminophen (Tylenol) 650 mg PO Q4-6HP PRN; Protocol PRN Reason: PAIN/FEVER > 101 Albuterol Sulfate (Ventolin) 2.5 mg NEB Q4HP PRN PRN Reason: Wheezing Dextrose (Dextrose 50%) 0 ml IV UD PRN PRN Reason: Hypoglycemia Diagnostic Test (Pha) (Accu-Chek) 1 each FS ACHS [facility] Last Admin: 11/19/18 07:53 Dose: 1 each Documented by: Docusate Sodium (Colace) 100 mg PO BID [facility] Last Admin: 11/19/18 08:01 Dose: 100 mg Documented by: Glucose (Insta-Glucose) 15 gm PO PRN PRN PRN Reason: Hypoglycemia Heparin Sodium (Porcine) (Heparin) 5,000 unit SQ Q12 [facility] Last Admin: 11/19/18 08:01 Dose: 5,000 unit Documented by: Clindamycin Phosphate 600 mg/ (Dextrose) 54 mls @ 100 mls/hr IV Q8H [facility]; Protocol Last Infusion: 11/19/18 06:15 Dose: Infused Documented by: Sodium Chloride (Sodium Chloride 0.9%) 1,000 mls @ 50 mls/hr IV .Q20H [facility]EN[facility] Insulin Human Lispro (Humalog) 0 unit SQ ACHS [facility]; Protocol Last Admin: 11/19/18 08:10 Dose: 2 units Documented by: Ondansetron HCl (Zofran) 4 mg IV Q4-6HP PRN; Protocol PRN Reason: Nausea And Vomiting Sodium Chloride (Saline Flush) 10 ml IV Q8 [facility] Last Admin: 11/19/18 05:53 Dose: Not Given Documented by: Medical - PN: A/P - Time Spent With Patient Total time spent is greater than 50% in coordination of care (as documented) at patient's floor/unit and/or counseling patient: - Narrative A/P Narrative: Critical hyperkalemia--improving Probably due to Bactrim losartan, dehydration and renal failure Potassium of 7.4 upon admission and improved to 5.7 today Received albuterol, insulin dextrose and Kayexalate in the ER Continued Kayexalate 30 twice daily and stopped at this morning No EKG changes, received calcium gluconate Plan Continue IV fluids 50 mils per hour Stop the Kayexalate as his potassium 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 renal failure probably due to medications and dehydration Creatinine 3.2 with a baseline around 2.4 Monitor urine output Telemetry monitoring Continue IV fluids 50 mils per hour Left abdominal superficial wound infection Leukocytosis improving 12,000 no features of sepsis We will start him on clindamycin 600 3 times daily Urology planning for incision and drainage tomorrow Type 2 diabetes We will hold the glipizide because of the renal failure Sliding scale insulin Recent left nephrectomy He has a Major catheter Monitor urine output Ultrasound renal if needed Essential hypertension Monitor blood pressure and restart home medication as needed We will discontinue losartan as he seems to have high normal potassium DVT prophylaxis-subcu heparin CODE STATUS-full code Medical - PN: Qual - VTE Deep Vein Thrombosis/Pulmonary Embolism Present on Admission: No
[2018-11-19] MEDS ORDERED: 0.9 % SODIUM CHLORIDE 1,000 ML IV SCH (11:45)
[2018-11-19] MEDS ORDERED: DEXTROSE 31 GM ORAL.SUSP PO PRN (12:15)
[2018-11-19] MEDS ORDERED: DEXTROSE 50% 50 ML VIAL IV PRN (12:15)
[2018-11-19] MEDS ORDERED: ONDANSETRON 4 MG/2 ML VIAL IV PRN (12:15)
--- NOTE | 2018-11-19 13:28 | General Surgery Progress Note ---
Surgical - Auxillary Note - Subjective Patient Information: Note initiated : 11/19/18 at 1:27 pm Service Date, if different from initiated Date: [] Patient: Anival Cabezas a 68 y/o M admitted on 11/18/18 for hyperkalemia. Chief Complaint: [] patient improved. K+ going down. to surgery tomorrow.
[2018-11-19 18:57] LABS: Blood Urea Nitrogen 41 mg/dl (8-23); Calcium 9.1 mg/dl (8.6-10.4); Carbon Dioxide 19 mmol/L (22-30); Chloride 107 mmol/L (96-108); Glomerular Filtration Rate 22; Glucose 120 mg/dL (70-105)
[2018-11-19] MEDS ORDERED: INSULIN REGULAR, HUMAN 1 UNIT/0.01 ML UNIT IV ONE (19:01)
[2018-11-19] MEDS ORDERED: CALCIUM GLUCONATE 13.95 MEQ in DEXTROSE 5% IN WATER 50 ML IV ONE (19:01)
[2018-11-19] MEDS ORDERED: DEXTROSE 50% 50 ML VIAL IV ONE (19:01)
[2018-11-19] MEDS ORDERED: CALCIUM GLUCONATE 4.65 MEQ/10 ML VIAL ONE (19:36)
[2018-11-19] MEDS: ALBUTEROL SULFATE 5 MG/ML NEB SOLUTION BOTTLE NEB ONE ×2 (19:38→19:43)
[2018-11-19] MEDS ORDERED: INSULIN REGULAR, HUMAN 1 UNIT/0.01 ML UNIT ONE (20:06)
[2018-11-20] MEDS: 0.9 % SODIUM CHLORIDE 1,000 ML IV SCH ×2 (00:28→13:44)
[2018-11-20] MEDS: CLINDAMYCIN 600 MG in DEXTROSE 5% IN WATER 50 ML IV SCH ×3 (05:52→22:22)
[2018-11-20] MEDS: 0.9 % SODIUM CHLORIDE 10 ML SYRINGE IV SCH ×3 (05:54→22:22)
[2018-11-20 07:30] LABS: Hematocrit 29.6 % (41.0-55.0); Hemoglobin 9.6 g/dL (13.5-16.5); Mean Cell Volume 84.9 fL (80.0-100.0); Mean Corpuscular HGB Conc 32.4 g/dL (31.0-36.0); Mean Platelet Volume 7.8 fL (7.4-10.4); Platelet Count 307 K/mcL (140-440); RBC 3.49 M/mcL (4.50-5.90); Red Cell Distribution Width 16.4 % (11.5-14.5); WBC 11.3 K/mcL (4.5-11.0)
[2018-11-20 09:03] LABS: ALT/SGPT 10 U/l (0-40); AST/SGOT 11 U/l (0-37); Albumin 3.8 gm/dL (3.2-5.2); Albumin/Globulin Ratio 1.4 (1.0-2.3); Alkaline Phosphatase 67 U/L (39-117); Bilirubin,Total 0.2 mg/dL (0.0-1.0); Blood Urea Nitrogen 36 mg/dl (8-23); Calcium 9.5 mg/dl (8.6-10.4); Carbon Dioxide 17 mmol/L (22-30); Chloride 108 mmol/L (96-108); Globulin 2.7 gm/dL (2.2-3.7); Glomerular Filtration Rate 22; Glucose 156 mg/dL (70-105)
[2018-11-20] MEDS: SODIUM POLYSTYRENE SULFONATE 15 GM/60 ML SUSPENSION PO SCH ×2 (09:30→22:20)
[2018-11-20 09:43] LABS: Anisocytosis 1+ (NONE SEEN); Band Neutrophils % 1 % (0-10); Eosinophils % (Manual) 5 % (0-7); Lymphocytes % 13 % (15-49); Monocytes % (Manual) 2 % (1-12); Platelet Estimate NORMAL (NORMAL); RBC Morphology ABNORM (NORMAL); Segmented Neutrophils % 79 % (38-78)
[2018-11-20] MEDS: DOCUSATE SODIUM 100 MG CAPSULE PO SCH ×2 (10:09→22:23)
[2018-11-20] MEDS: INSULIN LISPRO 1 UNIT/0.01 ML UNIT SQ SCH ×4 (10:09→22:24)
[2018-11-20] MEDS: HEPARIN 5,000 UNIT/ML VIAL SQ SCH ×2 (10:09→22:21)
[2018-11-20 11:21] LABS: Blood Urea Nitrogen 34 mg/dl (8-23); Calcium 9.5 mg/dl (8.6-10.4); Carbon Dioxide 19 mmol/L (22-30); Chloride 109 mmol/L (96-108); Glomerular Filtration Rate 24; Glucose 149 mg/dL (70-105)
[2018-11-20] MEDS ORDERED: INSULIN REGULAR, HUMAN 1 UNIT/0.01 ML UNIT IV ONE (12:00)
[2018-11-20] MEDS ORDERED: SODIUM BICARBONATE 50 MEQ/50 ML VIAL IV SCH (12:00)
[2018-11-20] MEDS ORDERED: DEXTROSE 50% 50 ML VIAL IV ONE (12:00)
[2018-11-20] MEDS ORDERED: ALBUTEROL SULFATE 5 MG/ML NEB SOLUTION BOTTLE NEB ONE (12:00)
--- NOTE | 2018-11-20 12:07 | Internal Med Progress Note ---
Medical - PN: Subj Patient information: Note initiated : 11/20/18 at 12:05 pm Service Date, if different from initiated Date: [] Patient: Anival Cabezas 68 y/o M admitted on 11/18/18 for hyperkalemia. Chief Complaint: [] Interval history: 67-year-old gentleman was admitted with a 6 critical hyperkalemia potassium 7.4 received initial hyperkalemia protocol and then continued Kayexalate his potassium improved to 5.7 this is most likely due to medications losartan and Bactrim. He is also pending incision and drainage of his left abdominal wound from drainage placement. He is on clindamycin 600 3 times daily for that. He was also having acute renal failure with a creatinine 3.5 and baseline 2.5 on IV fluids. 11/19-his potassium improving 5.7 we will continue to monitor recheck potassium this afternoon. Continue antibiotic clindamycin for the superficial abdominal wound and pending incision and drainage tomorrow by urology. Continue IV fluid resuscitation 100 mils per hour for the renal failure continue sizing sprayer 11/20-has potassium bounced back remain elevated this morning, 6.1. Discussed with nephrology and nephrology will evaluate the patient in the meantime he was started on acute hyperkalemia protocol with albuterol, insulin dextrose. He is planning to undergo incision and drainage surgery this afternoon and will just recheck the potassium. He might have an underlying RTA on top of that he received Bactrim and losartan and had a renal failure presented to the [facility] Pertinent ROS: General appearance-asymptomatic alert oriented not in any distress Respiratory no shortness of breath no wheezing no cough CVS-no chest pain no palpitations no syncope or presyncope Abdomen-distended no pain, having loose stools Urinary-denied any pain or drainage Major catheter in place Lower extremity denied any worsening swelling or pain - Constitutional Vitals: Vital Signs Temp Pulse Resp BP Pulse Ox 98.5 F 81 19 132/55 98 11/20/18 08:00 11/20/18 08:00 11/20/18 08:00 11/20/18 08:00 11/20/18 08:00 Period Temp Pulse Resp BP Sys/Tapia Pulse Ox Last 24 Hr 97.7 F-99 F 67-102 16-23 105-158/55-76 96-99 Intake and Output 11/19/18 11/20/18 11/20/18 21:59 05:59 13:59 Intake Total 54 54 Output Total 700 900 Balance -646 -846 Weight 248 lb 3.2 oz Intake & Output: Intake & Output 11/19/18 11/20/18 11/20/18 21:59 05:59 13:59 Intake Total 54 54 Output Total 700 900 Balance -646 -846 Weight 248 lb 3.2 oz Intake: IV 54 54 Sodium Chloride 0.9% 1,000 ml @ 0 100 mls/hr IV .Q10H [facility] Rx#: [id number] Cleocin 600 mg In Dextrose 5% 54 54 in Water 50 ml @ 100 mls/hr IV Q8H [facility] Rx#:[id number] Output: Urine Catheter Amount 700 900 Other: Urine Appearance Uretheral (Major) Clear Urine Color Dark Yellow Straw Uretheral (Major) Pale Stool Size Small Small Small Stool Color Brown Brown Brown Stool Consistency Soft Loose Soft Formed # Bowel Movements 1 1 1 - Head Head exam: Present: atraumatic, normal inspection, normocephalic - Eye Eye exam: Present: normal appearance. Absent: conjunctival injection, nystagmus - ENT ENT exam: Present: mucous membranes moist, normal exam, normal external ear exam, normal oropharynx - Neck Neck exam: Present: full ROM, normal inspection. Absent: lymphadenopathy, meningismus - Respiratory Respiratory exam: Present: normal respiratory exam. Absent: rhonchi, stridor, wheezes - Cardiovascular Cardiovascular exam: Absent: bradycardia, gallop, tachycardia - GI/Abdominal GI/Abdominal exam: Present: normal bowel sounds, soft, distended - Neurological Exam Neurological exam: Present: alert, oriented X3. Absent: motor sensory deficit Medical - PN: Obj Da - Labs CBC & Chem 7: 11/20/18 03:43 11/20/18 09:47 Labs: Abnormal Lab Results 11/20/18 11/20/18 11/20/18 09:47 03:43 03:43 WBC 11.3 H RBC 3.49 L Hgb 9.6 L Hct 29.6 L POC Hct RDW 16.4 H Gran % Lymph % (Auto) Gran # Seg Neutrophils % 79 H Lymphocytes % 13 L RBC Morphology Abnorm A Anisocytosis 1+ A POC Potassium Potassium 6.3 H* 6.1 H* POC Chloride Chloride 109 H Carbon Dioxide 19 L 17 L POC Total CO2 POC BUN BUN 34 H 36 H Creatinine 2.6 H 2.8 H POC Creatinine Glucose 149 H 156 H POC Glucose POC WB Ioniz Calcium Magnesium Urine Protein 11/19/18 11/19/18 11/19/18 15:56 03:50 03:50 WBC 12.0 H RBC 3.43 L Hgb 9.5 L Hct 29.3 L POC Hct RDW 16.5 H Gran % Lymph % (Auto) Gran # Seg Neutrophils % Lymphocytes % RBC Morphology Abnorm A Anisocytosis 1+ A POC Potassium Potassium 6.6 H* 5.7 H POC Chloride Chloride Carbon Dioxide 19 L 17 L POC Total CO2 POC BUN BUN 41 H 45 H Creatinine 2.8 H 3.3 H POC Creatinine Glucose 120 H 174 H POC Glucose POC WB Ioniz Calcium Magnesium 1.5 L Urine Protein 11/18/18 11/18/18 11/18/18 Unknown 21:31 17:28 WBC RBC Hgb Hct POC Hct RDW Gran % Lymph % (Auto) Gran # Seg Neutrophils % Lymphocytes % RBC Morphology Anisocytosis POC Potassium Potassium 5.9 H* 6.1 H* POC Chloride Chloride Carbon Dioxide 18 L 17 L POC Total CO2 POC BUN BUN 48 H 47 H Creatinine 3.5 H 3.4 H POC Creatinine Glucose 177 H 252 H POC Glucose POC WB Ioniz Calcium Magnesium Urine Protein 30 A 11/18/18 11/18/18 11/18/18 13:45 11:57 09:58 WBC 14.4 H RBC 3.91 L Hgb 10.7 L Hct 33.1 L POC Hct 33.0 L RDW 16.2 H Gran % 79.3 H Lymph % (Auto) 14.5 L Gran # 11.4 H Seg Neutrophils % Lymphocytes % RBC Morphology Anisocytosis POC Potassium 5.5 H Potassium 6.0 H* POC Chloride 114 H Chloride Carbon Dioxide 15 L POC Total CO2 16 L POC BUN 42 H BUN 46 H Creatinine 3.5 H POC Creatinine 3.6 H Glucose 149 H POC Glucose 200 H POC WB Ioniz Calcium 1.33 H Magnesium Urine Protein 11/18/18 09:58 WBC RBC Hgb Hct POC Hct 33.0 L RDW Gran % Lymph % (Auto) Gran # Seg Neutrophils % Lymphocytes % RBC Morphology Anisocytosis POC Potassium 7.4 H* Potassium 7.4 H* POC Chloride 114 H Chloride 110 H Carbon Dioxide 14 L POC Total CO2 16 L POC BUN 45 H BUN 48 H Creatinine 3.2 H POC Creatinine 3.8 H Glucose POC Glucose POC WB Ioniz Calcium Magnesium 1.3 L Urine Protein Meds: Medications Acetaminophen (Tylenol) 650 mg PO Q4-6HP PRN; Protocol PRN Reason: PAIN/FEVER > 101 Albuterol Sulfate (Ventolin) 2.5 mg NEB Q4HP PRN PRN Reason: Wheezing Albuterol Sulfate (Albuterol Sulfate) 10 mg NEB ONCE ONE Stop: 11/20/18 12:01 Dextrose (Dextrose 50%) 0 ml IV UD PRN PRN Reason: Hypoglycemia Diagnostic Test (Pha) (Accu-Chek) 1 each [facility] Last Admin: 11/20/18 07:30 Dose: 1 each Documented by: Docusate Sodium (Colace) 100 mg PO BID [facility] Last Admin: 11/20/18 10:09 Dose: Not Given Documented by: Glucose (Insta-Glucose) 15 gm PO PRN PRN PRN Reason: Hypoglycemia Heparin Sodium (Porcine) (Heparin) 5,000 unit SQ Q12 [facility] Last Admin: 11/20/18 10:09 Dose: Not Given Documented by: Clindamycin Phosphate 600 mg/ (Dextrose) 54 mls @ 100 mls/hr IV Q8H [facility]; Protocol Last Admin: 11/20/18 05:52 Dose: 100 mls/hr Documented by: Sodium Chloride (Sodium Chloride 0.9%) 1,000 mls @ 50 mls/hr IV .Q20H [facility] Last Admin: 11/20/18 00:28 Dose: 50 mls/hr Documented by: Insulin Human Lispro (Humalog) 0 unit SQ [facility]; Protocol Last Admin: 11/20/18 10:09 Dose: Not Given Documented by: Ondansetron HCl (Zofran) 4 mg IV Q4-6HP PRN; Protocol PRN Reason: Nausea And Vomiting Sodium Bicarbonate (Sodium Bicarbonate Vial) 50 meq IV UD [facility] Stop: 11/21/18 12:01 Sodium Chloride (Saline Flush) 10 ml IV Q8 [facility] Last Admin: 11/20/18 05:54 Dose: Not Given Documented by: Sodium Polystyrene Sulfonate (Kayexalate) 30 gm PO BID [facility] Last Admin: 10/03/19 09:30 Dose: 30 gm Documented by: Medical - PN: A/P - Time Spent With Patient Total time spent is greater than 50% in coordination of care (as documented) at patient's floor/unit and/or counseling patient: - Narrative A/P Narrative: Critical hyperkalemia--improving Probably due to Bactrim losartan, dehydration and renal failure Potassium of 7.4 upon admission and improved and went up again Started him on acute hyperkalemia protocol as he is planning to undergo surgery this afternoon Continued Kayexalate 30 twice daily No EKG changes, received calcium gluconate Plan Continue IV fluids 50 mils per hour Nephrology consult to look for any underlying etiology for chronic hyperkalemia pvc monitor Acute renal failure probably due to medications and dehydration Creatinine 3.2, slightly improved with IV fluid Monitor urine output Telemetry monitoring Continue IV fluids 50 mils per hour Left abdominal superficial wound infection Leukocytosis improving 12,000 no features of sepsis We will start him on clindamycin 600 3 times daily Urology planning for incision and drainage Type 2 diabetes We will hold the glipizide because of the renal failure Sliding scale insulin Recent left nephrectomy He has a Major catheter Monitor urine output Ultrasound renal if needed Essential hypertension Monitor blood pressure and restart home medication as needed We will discontinue losartan as he seems to have high normal potassium DVT prophylaxis-subcu heparin CODE STATUS-full code Medical - PN: Qual - VTE Deep Vein Thrombosis/Pulmonary Embolism Present on Admission: No
--- NOTE | 2018-11-20 12:40 | Nephrology Consult Note ---
History of Present Illness - Reason for Consult Patient information: Note initiated : 11/20/18 at 12:38 pm Service Date, if different from initiated Date: [] Patient: Anival Cabezas 68 y/o M admitted on 11/18/18 for hyperkalemia. Chief Complaint: [] chronic renal failure, hyperkalemia - Chief Complaint Were for incisional infection, surger cancelled due to hyperkalemia - History of Present Illness The patient is a 68 yr old white male with ype 2 diabetes, hypertension and recently diagnosed renal cell carcinoma status post left nephrectomy in July 2018. During the hospital stay patient noticed to have hyperkalemia with a potassium 6.4 which was treated with a Lasix and patient further treatment his potassium came down. Patient was on losartan and naproxen told to be the reason for hyperkalemia at that time and he was discharged. He followed up in the urology clinic and found to have a left abdominal superficial wound infection at the site of drainage. Wound for which he was started on Bactrim which was continued as his infection seems to be under control. I could not find any wound culture in the system. He was brought to the hospital for incision and drainage of the wound but found to have a potassium of 6.6 in the preop he was then transferred to the ER. In the ER they repeated the potassium which was 7.4 and was started on hyperkalemia protocol with insulin dextrose, albuterol, Lasix, IV fluid resuscitation received 1.5 L and continued 150 mils per hour. No EKG changes and received calcium gluconate upon admission. Telemetry remained unremarkable. I was asked to evaluate the patient. Below is a record of his K found in the EMR: It is clear that this patient has a chronic elevation in his serum K. As 90% of the potassium is intracellularly stored, he will require a lot of K wasting (kayexalate or orther Rx) to get his potassium to mormal. I'd recommend Patiromer 8.4 gm- 25.2 gm/day, and follow up as outpatient. He needs a renal U/S to make sure there is no obstruction in the remaining left kidney. Avoid all Rx associated with hyperkalemia or shifting of inracellular to intracellular K (RAASI, Bactrim, B-Blockers Normal GFR for this age post NPX is 40 to 30 cc/min. Alternative for Hypertension and proteinuria in a diabetic with Type IV RTA (this plus reduced renal mass make him prone to hyperkalemia forever), is Verapamil or Diltiazem (not amlodipine). Review of Systems Constitutional: no as per HPI, no anorexia, no headache(s), no increased appetite, no lethargy, no malaise, no night sweats, no snoring, no stops breathing during sleep, no weakness, no weight gain, no weight loss, no other, no chills, no daytime sleepiness, no excessive sweating, no fatigue, no fever(s), no frequent falls Nose, mouth and throat: as per HPI Breasts: as per HPI Cardiovascular: no chest pain, no claudication Respiratory: no cough, no dyspnea, no hemoptysis Gastrointestinal: abdominal pain Genitourinary: no difficulty urinating Musculoskeletal: other (left flank incisional pain) Integumentary: as per HPI Neurological: as per HPI Psychiatric: as per HPI Endocrine: fatigue Hematologic/Lymphatic: as per HPI Allergic/Immunologic: as per HPI Past History Past medical history: Medical History (Last Reviewed 11/14/18 @ 10:41 by Constance Blake RN) Dysuria (Chronic) Abdominal pain (Chronic) Urinary urgency (Chronic) Urine frequency (Chronic) Pain with urination (Chronic) Benign essential hypertension (Chronic) Chronic obstructive lung disease (Chronic) Diabetes mellitus (Chronic) Open angle with borderline findings, 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) Chronic cough (Chronic) Diabetic peripheral neuropathy (Chronic) Tinnitus (Chronic) Gout (Chronic) Obesity (Chronic) Diabetes mellitus type 2 without retinopathy (Chronic) Age related cataract (Chronic) 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) Well adult (Chronic) Hyperlipidemia (Chronic) Osteoarthritis (Chronic) Surgical history: Past Surgical History (Last Reviewed 11/14/18 @ 10:41 by Constance Blake RN) History of right hip replacement (Acute) History of right shoulder replacement (Acute) Hx of appendectomy (Acute) History of colonoscopy (Chronic) Pertinent family history: Family History (Last Reviewed 11/14/18 @ 10:41 by Constance Blake RN) Other Cancer Diabetes HTN (hypertension) Heart attack Kidney stone Social history: Social History (Last Updated 11/14/18 @ 11:20 by Channing Grubbs MD) No Social History Section defined Functional capacity: independent ambulation Medications and Allergies Home Medications Medication Instructions Recorded Confirmed Type albuterol sulfate 90 mcg/actuation 2 puff INHALATION QIDP PRN 06/10/18 11/18/18 History aerosol inhaler allopurinol 100 mg tablet 100 mg PO QDAY 06/10/18 11/18/18 History budesonide-formoterol HFA 160 2 puff INHALATION BID 06/10/18 11/18/18 History mcg-4.5 mcg/actuation aerosol inhaler cholecalciferol (vitamin D3) 5,000 5,000 unit PO QDAY 06/10/18 11/18/18 History unit capsule glipizide 5 mg tablet 5 mg PO BIDAC tab 06/10/18 11/18/18 History losartan 25 mg tablet 25 mg PO QDAY 06/10/18 11/18/18 History pregabalin 75 mg capsule 75 mg PO BID 06/10/18 11/18/18 History Ascorbic Acid [Vitamin C] 500 mg PO DAILY 07/31/18 11/18/18 History Sulfamethoxazole/Trimethoprim 1 tab PO DAILY 11/18/18 11/18/18 History [Bactrim Ds] Allergies Allergy/AdvReac Type Severity Reaction Status Date / Time pepper (genus Capsicum) Allergy Severe Difficulty Verified 11/18/18 07:39 Breathing codeine Allergy Mild Rash Verified 11/18/18 07:39 hydrocodone Allergy Mild Rash Verified 11/18/18 07:39 Penicillins Allergy Mild Rash Verified 11/18/18 07:39 black walnut AdvReac Mild Vomiting Verified 11/18/18 07:39 lisinopril AdvReac Mild Cough Verified 11/18/18 07:39 Exam - Vital Signs Vital signs: Temp Pulse Resp BP Pulse Ox 98.5 F 81 19 132/55 98 11/20/18 08:00 11/20/18 08:00 11/20/18 08:00 11/20/18 08:00 11/20/18 08:00 - General Appearance General appearance: well-developed, well-nourished, obese EENT: ATNC, PERRL, mucous membranes moist Neck: no JVD Cardiology: no murmurs, regular rate, regular rhythm, normal S1, normal S2 Gastrointestinal: normoactive bowel sounds, tenderness, no guarding Integumentary: no rash, erythema Neurologic: no focal deficit, no asterixis, alert and oriented x3, CN 3-12 intact Musculoskeletal: no deformities, no erythema Psychiatric: mood/affect appropriate Results - Lab Results 11/20/18 03:43 11/20/18 13:07 Most recent lab results Calcium 9.5 mg/dl (8.6-10.4) 11/20/18 09:47 Magnesium 1.7 mg/dL (1.6-2.5) 11/20/18 03:43 - Image Kidney/bladder ultrasound: report reviewed (Left NPx site looks fine, no hydro on right) Assessment and Plan (1) Hyperkalemia Suspect diabetic nephropasthy with Type IV RTA is root cause of chronic hyperkalemia. His total body stores (90% intracellular) are increased due to yrs of mild hyperkalemia, Bactrim, RAASI and NSAIDs all decreas renal excretion making the whole situation worse. * I'm glad that I&D was performed w/o general anesthesis as in this situation hypotension, acidosis and succinylcholine could have rapidly raise serum K in this situation. * Continue q 6 hour kayexalate * Likely D/C home tomorrow with daily kayexalate or patiromer and follow up with me in 3 days with labs. Status: Acute (2) Type 2 DM with CKD stage 4 and hypertension GFR 24 cc/min so had some mild decrease in GFR before left NPx * Check urine protein/Creatinine ratio * Avoid RAASI, bactrim and NSAIDs * Keep hydrated Status: Acute (3) H/O left radical nephrectomy Post op GFR ~ 25 cc/min No issues in NPx bed. I&D and wound vac for incisional infection Concern for MRSA - Doxycycline or clinda. Avoid Bactrim due to type 4 RTA No NSAIDs or Ketorolac post op, IV or po tylenol would be my choice Status: Acute
[2018-11-20] MEDS ORDERED: DEXTROSE 50% 50 ML VIAL IV SCH (13:30)
[2018-11-20] MEDS ORDERED: INSULIN REGULAR, HUMAN 1 UNIT/0.01 ML UNIT IV SCH (13:30)
--- NOTE | 2018-11-20 14:36 | Ultrasound Report ---
History: Increased serum renal lab values and status post prior left nephrectomy for renal cell carcinoma FINDINGS: The right kidney measures 5.3 x 5.7 x 11.9 cm. The cortex is mildly echogenic and lobulated. There are few cysts. Laterally in the middle third there is a 1 cm cortical cyst. Inferiorly and laterally there is a cluster of cysts which extend exophytically. The largest is bilobed and measures 2.7 x 2.8 x 4.6 cm. No solid mass is seen. There is no calculus or hydronephrosis. The bladder is empty. Therefore we were unable to visualize flow of urine through the ureter into the bladder. There is a Major catheter within the bladder. Images of the left renal fossa show no evidence of a mass or residual renal tissue IMPRESSION: Mildly echogenic renal parenchyma due to chronic medical renal disease Simple cysts No evidence of malignancy Interpreted and Authenticated by: Lucien Knott 11/20/18
[2018-11-20 14:58] LABS: Blood Urea Nitrogen 32 mg/dl (8-23); Carbon Dioxide 19 mmol/L (22-30); Chloride 108 mmol/L (96-108); Glomerular Filtration Rate 24; Glucose 139 mg/dL (70-105)
[2018-11-20] MEDS ORDERED: SODIUM BICARBONATE VIAL 50 MEQ in DEXTROSE 5% IN WATER 100 ML IV ONE (15:00)
[2018-11-20] MEDS ORDERED: DEXTROSE 50% 50 ML SYRINGE IV ONE (15:15)
--- NOTE | 2018-11-20 15:35 | Brief Operative Note ---
Date of procedure: 11/20/18 Pre-op diagnosis: superficial woung infection Procedure: I & D of abdominal wound Grafts/Implants: Yes (wound vac) Anesthesia: MAC Findings: see note Complications: other Surgeon: Channing Grubbs Specimens Removed/Pathology: none sent Condition: stable Disposition: ICU
[2018-11-20] MEDS: ACETAMINOPHEN 325 MG TABLET PO PRN ×2 (16:05→22:21)
[2018-11-20 19:37] LABS: Blood Urea Nitrogen 32 mg/dl (8-23); Calcium 9.6 mg/dl (8.6-10.4); Carbon Dioxide 18 mmol/L (22-30); Chloride 110 mmol/L (96-108); Glomerular Filtration Rate 25; Glucose 240 mg/dL (70-105)
[2018-11-21] MEDS: 0.9 % SODIUM CHLORIDE 10 ML SYRINGE IV SCH ×3 (05:13→22:36)
[2018-11-21] MEDS: CLINDAMYCIN 600 MG in DEXTROSE 5% IN WATER 50 ML IV SCH ×3 (05:13→22:35)
[2018-11-21 05:56] LABS: Hematocrit 30.5 % (41.0-55.0); Hemoglobin 9.8 g/dL (13.5-16.5); Mean Cell Volume 84.8 fL (80.0-100.0); Mean Corpuscular HGB Conc 32.3 g/dL (31.0-36.0); Mean Platelet Volume 7.9 fL (7.4-10.4); Platelet Count 318 K/mcL (140-440); Red Cell Distribution Width 16.5 % (11.5-14.5); WBC 11.7 K/mcL (4.5-11.0)
[2018-11-21 06:09] LABS: ALT/SGPT 10 U/l (0-40); AST/SGOT 12 U/l (0-37); Albumin 3.7 gm/dL (3.2-5.2); Albumin/Globulin Ratio 1.3 (1.0-2.3); Alkaline Phosphatase 74 U/L (39-117); Bilirubin,Total 0.3 mg/dL (0.0-1.0); Blood Urea Nitrogen 29 mg/dl (8-23); Calcium 9.5 mg/dl (8.6-10.4); Carbon Dioxide 18 mmol/L (22-30); Chloride 111 mmol/L (96-108); Globulin 2.9 gm/dL (2.2-3.7); Glomerular Filtration Rate 25; Glucose 140 mg/dL (70-105)
--- NOTE | 2018-11-21 07:22 | General Surgery Progress Note ---
Surgical - Auxillary Note - Subjective Patient Information: Note initiated : 11/21/18 at 7:21 am Service Date, if different from initiated Date: [] Patient: Anival Cabezas 68 y/o M admitted on 11/18/18 for hyperkalemia. Chief Complaint: superficial abscess patient doing better. wound vac is functional. antibiotics per hospitalist. full consult dictated.
[2018-11-21] MEDS: INSULIN LISPRO 1 UNIT/0.01 ML UNIT SQ SCH ×4 (07:28→20:16)
[2018-11-21 07:57] LABS: Segmented Neutrophils % 69 % (38-78)
[2018-11-21 07:58] LABS: Anisocytosis 1+ (NONE SEEN); Eosinophils % (Manual) 3 % (0-7); Hypochromasia FEW (NONE SEEN); Lymphocytes % 22 % (15-49); Monocytes % (Manual) 5 % (1-12); Myelocytes % 1 % (0-0); Ovalocytes FEW (NONE SEEN); Platelet Estimate NORMAL (NORMAL); RBC Morphology ABNORM (NORMAL)
--- NOTE | 2018-11-21 08:15 | Nephrology Progress Note ---
Subjective Patient information: Note initiated : 11/21/18 at 8:12 am Service Date, if different from initiated Date: [] Patient: Anival Cabezas 68 y/o M admitted on 11/18/18 for hyperkalemia. Chief Complaint: [] Principal diagnosis: Hyperkalemia Interval history: Improved with kayexalate Decreased GFR 2/2 decreased renal mass, Hypertensive and/or diabetic renal disease Mild) Hyperkalemia with type IV RTA and medications the interfere with renal handleing of K (Bactrim, RAASI therapy and NSAIDs) Pertinent ROS: Nothing to add Additional PMFSH (Level 3 Only): Reviewed Objective - Vital Signs Vital signs: Vital Signs Temp Pulse Pulse Resp BP BP BP 11/21/18 04:38 98.8 F 20 139/74 11/20/18 23:30 98.6 F 16 140/62 11/20/18 22:04 99 H 11/20/18 18:37 97.3 F 79 16 156/73 11/20/18 16:00 99.1 F H 106 H 18 124/65 11/20/18 15:32 124/65 11/20/18 12:22 137/68 11/20/18 12:00 97.6 F 72 16 137/68 11/20/18 08:45 78 132/55 Pulse Ox 11/21/18 04:38 97 11/20/18 23:30 94 11/20/18 22:04 98 11/20/18 18:37 98 11/20/18 16:00 96 11/20/18 15:32 11/20/18 12:22 11/20/18 12:00 97 11/20/18 08:45 97 Intake and Output 11/20/18 11/21/18 11/21/18 21:59 05:59 13:59 Intake Total 494 894 Output Total 973 1860 Balance -386 -212 Intake: IV 54 54 Cleocin 600 mg In Dextrose 5% 54 54 in Water 50 ml @ 100 mls/hr IV Q8H [facility] Rx#:[id number] Oral 440 840 Output: Urine Catheter Amount 400 Void Amount 100 Urine/Stool Mix 175 480 Stool 400 850 Other: Meal snack Percent of Meal Consumed 100% Feeding Ability Assist with Tray Set Up Stool Size Small Stool Color Brown Stool Consistency Soft # Bowel Movements 1 Weight 244 lb 8 oz Intake & Output: Intake & Output 11/20/18 11/21/18 11/21/18 21:59 05:59 13:59 Intake Total 494 894 Output Total 406 5540 Balance -481 -536 Weight 244 lb 8 oz Intake: IV 54 54 Cleocin 600 mg In Dextrose 5% 54 54 in Water 50 ml @ 100 mls/hr IV Q8H [facility] Rx#:[id number] Oral 440 840 Output: Urine Catheter Amount 400 Void Amount 100 Urine/Stool Mix 175 480 Stool 400 850 Other: Meal snack Percent of Meal Consumed 100% Feeding Ability Assist with Tray Set Up Stool Size Small Stool Color Brown Stool Consistency Soft # Bowel Movements 1 - General Appearance General appearance: well-developed, well-nourished, appears started age EENT: ATNC, PERRL, mucous membranes moist Neck: no JVD, supple Cardiology: no murmurs, no rub, regular rate, regular rhythm Gastrointestinal: normoactive bowel sounds, no guarding (would vac to left flank incison I/D) Integumentary: no rash, erythema Neurologic: no focal deficit, no asterixis, alert and oriented x3, CN 3-12 intact Musculoskeletal: no deformities, no cyanosis, no clubbing Psychiatric: mood/affect appropriate, cooperative - Lab 11/21/18 04:15 11/21/18 04:15 Most recent lab results Calcium 9.5 mg/dl (8.6-10.4) 11/21/18 04:15 Magnesium 1.7 mg/dL (1.6-2.5) 11/20/18 03:43 - Imaging Kidney/bladder ultrasound: report reviewed Assessment and Plan (1) Hyperkalemia Decrease kayexalate to 15 gm qDay Trial patiromer 8.4 gm po qD as outpatient NaHCO3 Tabs po Avoid ACEi, ARBs, spironolactone, all NSAIDs, and B-blockers Follow up with nephrology next week Status: Acute Priority: High (2) 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
[2018-11-21] MEDS: 0.9 % SODIUM CHLORIDE 1,000 ML IV SCH (08:41)
[2018-11-21] MEDS: SODIUM POLYSTYRENE SULFONATE 15 GM/60 ML SUSPENSION PO SCH (08:42)
[2018-11-21] MEDS: DOCUSATE SODIUM 100 MG CAPSULE PO SCH ×2 (08:43→20:17)
--- NOTE | 2018-11-21 09:08 | Consultation ---
DATE OF CONSULTATION: 11/21/2018 REQUESTING PHYSICIAN: Mati Ramirez MD HISTORY OF PRESENT ILLNESS: The patient is a 68-year-old gentleman with whom I am very familiar. He did undergo a left nephrectomy approximately 2 months ago. He did have a superficial wound infection which we felt was healed by secondary intention. He then started to have more discharge from the wound and was started on Septra. No cultures were sent this time. He was supposed to have an incision and drainage of the wound on 11/18/2018, but was found to have hyperkalemia. He was admitted to the hospital and Dr. Ramirez was kind enough to accept him. Yesterday he was scheduled for I and D of the wound with wound V.A.C. placement and was found again to be hyperkalemic. At the bedside we were able to open up the wound with the help of Anesthesia with monitored anesthesia care, and place the wound V.A.C. At this time, the wound V.A.C. is in place and is doing well. His white count is down slightly. His potassium is still high and the hospitalists are working on this. He does have a history of hyperkalemia. I have been asked to evaluate him for his wound. PAST MEDICAL HISTORY: As per previously dictated. REVIEW OF SYSTEMS: Please see the note by Dr. Castaneda. MEDICATIONS: Please see the nurse's notes. FAMILY HISTORY: Noncontributory. SOCIAL HISTORY: Again, see previous notes. PHYSICAL EXAMINATION: GENERAL: This is a very pleasant gentleman in no apparent distress. VITAL SIGNS: As listed per nurse's notes. NECK: Supple. Trachea is midline. HEART: Regular rate and rhythm. LUNGS: Clear to auscultation. ABDOMEN: Positive wound V.A.C. in place. No cellulitis is noted. GENITOURINARY: Scrotum without lesions. No hydrocele, no varicocele. Testicles are down in their normal position. Penis is circumcised without plaques. Major catheter has been removed. RECTAL: Deferred. EXTREMITIES: Without clubbing, cyanosis, or edema. NEUROLOGIC: Intact. IMPRESSION: Patient with a superficial wound infection. This was opened and a wound V.A.C. has been placed. [facility] agree to change his wound V.A.C. and will follow up with this. An ultrasound was obtained which did show no lesions on the right kidney, no hydronephrosis, and no evidence of recurrence of renal cell carcinoma. His wound should heal well and again his potassium and diabetes are being handled by Internal Medicine. I will continue to follow. XochitlZ:loc Job ID: [id number] Doc ID: [id number] Channing Grubbs MD
--- NOTE | 2018-11-21 09:15 | Operative Note ---
DATE OF OPERATION: 11/20/2018 HISTORY OF PRESENT ILLNESS: The patient is a 68-year-old gentleman who underwent a nephrectomy in the past for renal cell carcinoma. He did develop a superficial wound infection that we treated with wet-to-dry dressings. He seemed to improve but then had another outbreak of purulent material. When probing the wound, it seemed like it transversus the entire original incision. He was scheduled on 11/18/2018 for an I and D of the wound, but did have a high potassium. He was admitted to the hospital. He was supposed to go to the OR today for his I and D, but again his potassium was high. We have decided after consultation with Anesthesia to do this at the bedside. PROCEDURE IN DETAIL: The patient was identified and consent was signed. He was prepped and draped in a standard fashion. He did receive propofol-please see the anesthesia record. We made an incision with a scalpel along his original incision and carried this down approximately 3 cm until we reached purulent material. We opened this for the length of the wound. There was connective tissue underneath the wound and the fascia appeared to be intact. At this point, there was minimal bleeding. The decision was made to place a wound V.A.C. and the wound care nurse did do this. He tolerated this well and pain was minimal. RZ:loc Job ID: [id number] Doc ID: [id number] Channing Grubbs MD
[2018-11-21] MEDS: DILTIAZEM 30 MG TABLET PO SCH ×2 (09:25→20:17)
[2018-11-21] MEDS: SODIUM BICARBONATE 650 MG TABLET PO SCH ×2 (12:48→20:16)
[2018-11-21] MEDS: ACETAMINOPHEN 325 MG TABLET PO PRN ×3 (12:48→23:25)
[2018-11-21] MEDS: HEPARIN 5,000 UNIT/ML VIAL SQ SCH ×2 (12:48→20:17)
--- NOTE | 2018-11-21 14:07 | Internal Med Progress Note ---
Medical - PN: Subj Patient information: Note initiated : 11/21/18 at 2:06 pm Service Date, if different from initiated Date: [] Patient: Anival Cabezas 68 y/o M admitted on 11/18/18 for hyperkalemia. Chief Complaint: [] Interval history: 67-year-old gentleman was admitted with a 6 critical hyperkalemia potassium 7.4 received initial hyperkalemia protocol and then continued Kayexalate his potassium improved to 5.7 this is most likely due to medications losartan and Bactrim. He is also pending incision and drainage of his left abdominal wound from drainage placement. He is on clindamycin 600 3 times daily for that. He was also having acute renal failure with a creatinine 3.5 and baseline 2.5 on IV fluids. 11/19-his potassium improving 5.7 we will continue to monitor recheck potassium this afternoon. Continue antibiotic clindamycin for the superficial abdominal wound and pending incision and drainage tomorrow by urology. Continue IV fluid resuscitation 100 mils per hour for the renal failure continue surveillance system monitor 11/20-has potassium bounced back remain elevated this morning, 6.1. Discussed with nephrology and nephrology will evaluate the patient in the meantime he was started on acute hyperkalemia protocol with albuterol, insulin dextrose. He is planning to undergo incision and drainage surgery this afternoon and will just recheck the potassium. He might have an underlying RTA on top of that he received Bactrim and losartan and had a renal failure presented to the [facility] 11/21-his potassium remained elevated yesterday 6.3 and we had to use hyperkalemia protocol and given bicarbonate. He underwent bedside incision and drainage and wound VAC was placed. This morning his potassium is 5.1 discussed with the patient and we how to see a potassium level stable for next 24-hour and then he can be discharged. He also has a wound VAC which he needs to be to get out how to manage outpatient. Case management involved Pertinent ROS: General appearance-alert oriented asymptomatic Respiratory-no shortness of breath, no cough no chest discomfort CVS-no chest pain no palpitation no dizziness Abdomen-distended, continued having loose stools Neurology-no motor or sensory deficit - Constitutional Vitals: Vital Signs Temp Pulse Resp BP Pulse Ox 98.8 F 99 H 20 139/74 97 11/21/18 12:48 11/20/18 22:04 11/21/18 04:38 11/21/18 04:38 11/21/18 04:38 Period Temp Pulse Resp BP Sys/Tapia Pulse Ox Last 24 Hr 97.3 F-99.1 F 79-106 16-20 124-156/62-74 94-98 Intake and Output 11/21/18 11/21/18 11/21/18 05:59 13:59 21:59 Intake Total 894 Output Total 1430 Balance -536 Intake & Output: Intake & Output 11/21/18 11/21/18 11/21/18 05:59 13:59 21:59 Intake Total 894 Output Total 1430 Balance -536 Intake: IV 54 Cleocin 600 mg In Dextrose 5% 54 in Water 50 ml @ 100 mls/hr IV Q8H [facility] Rx#:[id number] Oral 840 Output: Void Amount 100 Urine/Stool Mix 480 Stool 850 Other: Meal snack Percent of Meal Consumed 100% Feeding Ability Assist with Tray Set Up Stool Size Small Stool Color Brown Stool Consistency Soft # Voids 1 # Bowel Movements 1 1 General appearance: cooperative, obese, no moderate distress - Head Head exam: Present: atraumatic, normal inspection, normocephalic - Eye Eye exam: Present: normal appearance. Absent: conjunctival injection - ENT ENT exam: Present: normal exam, normal external ear exam - Respiratory Respiratory exam: Present: normal respiratory exam. Absent: accessory muscle use, chest wall tenderness, decreased breath sounds - Cardiovascular Cardiovascular exam: Present: normal rate and rhythm. Absent: bradycardia, +S3, systolic murmur - GI/Abdominal GI/Abdominal exam: Present: normal bowel sounds, soft, distended - Neurological Exam Neurological exam: Present: alert, oriented X3. Absent: abnormal gait, motor sensory deficit Medical - PN: Obj Da - Labs CBC & Chem 7: 11/21/18 04:15 11/21/18 04:15 Labs: Abnormal Lab Results 11/21/18 11/21/18 11/20/18 04:15 04:15 15:53 WBC 11.7 H RBC 3.60 L Hgb 9.8 L Hct 30.5 L RDW 16.5 H Seg Neutrophils % Lymphocytes % Myelocytes % 1 H RBC Morphology Abnorm A Hypochromasia Few A Anisocytosis 1+ A Ovalocytes Few A Potassium 5.2 H Chloride 111 H 110 H Carbon Dioxide 18 L 18 L BUN 29 H 32 H Creatinine 2.5 H 2.5 H Glucose 140 H 240 H Magnesium 11/20/18 11/20/18 11/20/18 13:07 09:47 03:43 WBC RBC Hgb Hct RDW Seg Neutrophils % Lymphocytes % Myelocytes % RBC Morphology Hypochromasia Anisocytosis Ovalocytes Potassium 6.6 H* 6.3 H* 6.1 H* Chloride 109 H Carbon Dioxide 19 L 19 L 17 L BUN 32 H 34 H 36 H Creatinine 2.6 H 2.6 H 2.8 H Glucose 139 H 149 H 156 H Magnesium 11/20/18 11/19/18 11/19/18 03:43 15:56 03:50 WBC 11.3 H RBC 3.49 L Hgb 9.6 L Hct 29.6 L RDW 16.4 H Seg Neutrophils % 79 H Lymphocytes % 13 L Myelocytes % RBC Morphology Abnorm A Hypochromasia Anisocytosis 1+ A Ovalocytes Potassium 6.6 H* 5.7 H Chloride Carbon Dioxide 19 L 17 L BUN 41 H 45 H Creatinine 2.8 H 3.3 H Glucose 120 H 174 H Magnesium 1.5 L 11/19/18 11/18/18 11/18/18 03:50 21:31 17:28 WBC 12.0 H RBC 3.43 L Hgb 9.5 L Hct 29.3 L RDW 16.5 H Seg Neutrophils % Lymphocytes % Myelocytes % RBC Morphology Abnorm A Hypochromasia Anisocytosis 1+ A Ovalocytes Potassium 5.9 H* 6.1 H* Chloride Carbon Dioxide 18 L 17 L BUN 48 H 47 H Creatinine 3.5 H 3.4 H Glucose 177 H 252 H Magnesium 11/18/18 13:45 WBC RBC Hgb Hct RDW Seg Neutrophils % Lymphocytes % Myelocytes % RBC Morphology Hypochromasia Anisocytosis Ovalocytes Potassium 6.0 H* Chloride Carbon Dioxide 15 L BUN 46 H Creatinine 3.5 H Glucose 149 H Magnesium Meds: Medications Acetaminophen (Tylenol) 650 mg PO Q4-6HP PRN; Protocol PRN Reason: PAIN/FEVER > 101 Last Admin: 11/21/18 12:48 Dose: 650 mg Documented by: Albuterol Sulfate (Ventolin) 2.5 mg NEB Q4HP PRN PRN Reason: Wheezing Dextrose (Dextrose 50%) 0 ml IV UD PRN PRN Reason: Hypoglycemia Diagnostic Test (Pha) (Accu-Chek) 1 each FS ACHS [facility] Last Admin: 11/21/18 07:27 Dose: 1 each Documented by: Diltiazem HCl (Cardizem) 60 mg PO Q12 [facility] Last Admin: 11/21/18 09:25 Dose: 60 mg Documented by: Docusate Sodium (Colace) 100 mg PO BID [facility] Last Admin: 11/21/18 08:43 Dose: Not Given Documented by: Glucose (Insta-Glucose) 15 gm PO PRN PRN PRN Reason: Hypoglycemia Heparin Sodium (Porcine) (Heparin) 5,000 unit SQ Q12 [facility] Last Admin: 11/21/18 12:48 Dose: Not Given Documented by: Clindamycin Phosphate 600 mg/ (Dextrose) 54 mls @ 100 mls/hr IV Q8H [facility]; Protocol Last Admin: 11/21/18 05:13 Dose: 100 mls/hr Documented by: Sodium Chloride (Sodium Chloride 0.9%) 1,000 mls @ 50 mls/hr IV .Q20H [facility] Last Admin: 11/21/18 08:41 Dose: Not Given Documented by: Insulin Human Lispro (Humalog) 0 unit SQ [facility]; Protocol Last Admin: 11/21/18 07:28 Dose: 1 unit Documented by: Ondansetron HCl (Zofran) 4 mg IV Q4-6HP PRN; Protocol PRN Reason: Nausea And Vomiting Sodium Bicarbonate (Sodium Bicarbonate) 650 mg PO BID [facility] Last Admin: 11/21/18 12:48 Dose: 650 mg Documented by: Sodium Chloride (Saline Flush) 10 ml IV Q8 [facility] Last Admin: 11/21/18 05:13 Dose: 10 ml Documented by: Sodium Polystyrene Sulfonate (Kayexalate) 15 gm PO DAILY [facility] Last Admin: 11/21/18 08:42 Dose: 15 gm Documented by: Medical - PN: A/P - Time Spent With Patient Total time spent is greater than 50% in coordination of care (as documented) at patient's floor/unit and/or counseling patient: - Narrative A/P Narrative: 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, losartan induced Probably due to Bactrim losartan, dehydration and renal failure He always has his potassium around 5 probably due to RTA Potassium of 7.4 upon admission and improved and went up again Started him on acute hyperkalemia protocol as he is planning to undergo surgery this afternoon Continued Kayexalate 30 twice daily No EKG changes, received calcium gluconate Plan Nephrology evaluated the patient and recommended increasing the Kayexalate to every 6 which we did and his potassium was 5.1 Kayexalate twice daily now Monitor potassium next 24-hour if it does remain around 5 can be discharged tomorrow Acute renal failure probably due to medications and dehydration Creatinine 3.2, upon admission, improving now Monitor urine output Telemetry monitoring Continue IV fluids 50 mils per hour Left abdominal superficial wound infection-status post incision drainage Leukocytosis improving 12,000 no features of sepsis Continued clindamycin 600 3 times daily Wound VAC placed and planning for outpatient management Case management involved Type 2 diabetes We will hold the glipizide because of the renal failure Sliding scale insulin Recent left nephrectomy He has a Major catheter Monitor urine output Ultrasound renal if needed Essential hypertension Monitor blood pressure and restart home medication as needed We will discontinue losartan as he seems to have high normal potassium DVT prophylaxis-subcu heparin CODE STATUS-full code Medical - PN: Qual - VTE Deep Vein Thrombosis/Pulmonary Embolism Present on Admission: No
[2018-11-22] MEDS: CLINDAMYCIN 600 MG in DEXTROSE 5% IN WATER 50 ML IV SCH (04:58)
[2018-11-22] MEDS: 0.9 % SODIUM CHLORIDE 10 ML SYRINGE IV SCH (05:55)
[2018-11-22 06:26] LABS: ALT/SGPT 10 U/l (0-40); AST/SGOT 13 U/l (0-37); Albumin 4.1 gm/dL (3.2-5.2); Albumin/Globulin Ratio 1.3 (1.0-2.3); Alkaline Phosphatase 73 U/L (39-117); Bilirubin,Total 0.4 mg/dL (0.0-1.0); Blood Urea Nitrogen 28 mg/dl (8-23); Calcium 9.5 mg/dl (8.6-10.4); Carbon Dioxide 19 mmol/L (22-30); Chloride 103 mmol/L (96-108); Globulin 3.2 gm/dL (2.2-3.7); Glomerular Filtration Rate 24; Glucose 120 mg/dL (70-105)
[2018-11-22] MEDS: ACETAMINOPHEN 325 MG TABLET PO PRN (08:33)
[2018-11-22] MEDS: INSULIN LISPRO 1 UNIT/0.01 ML UNIT SQ SCH (08:41)
[2018-11-22] MEDS: SODIUM BICARBONATE 650 MG TABLET PO SCH (09:02)
[2018-11-22] MEDS: DOCUSATE SODIUM 100 MG CAPSULE PO SCH (09:02)
[2018-11-22] MEDS: SODIUM POLYSTYRENE SULFONATE 15 GM/60 ML SUSPENSION PO SCH (09:02)
[2018-11-22] MEDS: HEPARIN 5,000 UNIT/ML VIAL SQ SCH (09:02)
[2018-11-22] MEDS: DILTIAZEM 30 MG TABLET PO SCH (09:02)
--- NOTE | 2018-11-22 09:06 | Discharge Summary ---
Medical - DS: Prov Patient information: Note initiated : 11/22/18 at 9:02 am Service Date, if different from initiated Date: [] Patient: Anival Cabezas 68 y/o M admitted on 11/18/18 for hyperkalemia. Chief Complaint: [] Date of admission: 11/18/18 13:30 Discharge date: 11/22/18 Primary care physician: Lucien Mehta Consults: 11/18/18 12:19 Consult to Physician [CONS] Stat Comment: Consulting Provider: Mati Ramirez Reason For Exam: Admission 11/20/18 10:57 Consult to Physician [CONS] Routine Comment: persistent hyperkalemia Consulting Provider: Melchor Castaneda Reason For Exam: Physician to Consult 11/20/18 15:26 Consult to Physician [CONS] Routine Comment: Consulting Provider: Channing Grubbs Reason For Exam: Physician to Consult Medical - DS: Meds - Discharge Medications Prescriptions: Clindamycin HCl [Cleocin] 600 mg PO TID 10 Days cap Prescription Printed amLODIPine [Norvasc] 5 mg PO BID 30 Days tab Prescription Printed Sodium Bicarbonate 650 mg PO BID 7 Days tab Prescription Printed Active and Home Medications: Home Medications albuterol sulfate 90 mcg/actuation aerosol inhaler 2 puff INHALATION QIDP PRN 06/10/18 [History Confirmed 11/18/18 Last Taken 11/17/18] allopurinol 100 mg tablet 100 mg PO QDAY 06/10/18 [History Confirmed 11/18/18 Last Taken 11/17/18] budesonide-formoterol HFA 160 mcg-4.5 mcg/actuation aerosol inhaler 2 puff INHALATION BID 06/10/18 [History Confirmed 11/18/18 Last Taken 11/18/18 06:30] cholecalciferol (vitamin D3) 5,000 unit capsule 5,000 unit PO QDAY 06/10/18 [H istory Confirmed 11/18/18 Last Taken 11/17/18] glipizide 5 mg tablet 5 mg PO BIDAC tab 06/10/18 [History Confirmed 11/18/18 Last Taken 11/17/18] pregabalin 75 mg capsule 75 mg PO BID 06/10/18 [History Confirmed 11/18/18 Last Taken 11/17/18] Ascorbic Acid [Vitamin C] 500 mg PO DAILY 07/31/18 [History Confirmed 11/18/18 Last Taken 11/17/18] Clindamycin HCl [Cleocin] 600 mg PO TID 10 Days cap 11/22/18 [Rx Last Taken Unknown] Sodium Bicarbonate 650 mg PO BID 7 Days tab 11/22/18 [Rx Last Taken Unknown] amLODIPine [Norvasc] 5 mg PO BID 30 Days tab 11/22/18 [Rx Last Taken Unknown] Medical - DS: Hosp Hospital Course: 67-year-old gentleman was admitted with a 6 critical hyperkalemia potassium 7.4 received initial hyperkalemia protocol and then continued Kayexalate his potassium improved to 5.7 this is most likely due to medications losartan and Bactrim. He is also pending incision and drainage of his left abdominal wound from drainage placement. He is on clindamycin 600 3 times daily for that. He was also having acute renal failure with a creatinine 3.5 and baseline 2.5 on IV fluids. 11/19-his potassium improving 5.7 we will continue to monitor recheck potassium this afternoon. Continue antibiotic clindamycin for the superficial abdominal wound and pending incision and drainage tomorrow by urology. Continue IV fluid resuscitation 100 mils per hour for the renal failure continue phototypesetting equipment monitor 11/20-has potassium bounced back remain elevated this morning, 6.1. Discussed with nephrology and nephrology will evaluate the patient in the meantime he was started on acute hyperkalemia protocol with albuterol, insulin dextrose. He is planning to undergo incision and drainage surgery this afternoon and will just recheck the potassium. He might have an underlying RTA on top of that he received Bactrim and losartan and had a renal failure presented to the hyperkalemia 11/21-his potassium remained elevated yesterday 6.3 and we had to use hyperkalemia protocol and given bicarbonate. He underwent bedside incision and drainage and wound VAC was placed. This morning his potassium is 5.1 discussed with the patient and we how to see a potassium level stable for next 24-hour and then he can be discharged. He also has a wound VAC which he needs to be to get out how to manage outpatient. Case management involved 11/22-has potassium level remains less than 5 overnight and this morning it is 4.8. Discussed with the patient and he will be discharged home will be seen by nephrology, he was also started on bicarbonate 650 twice daily by nephrology. Clindamycin 600 3 times daily for next 10 days for the superficial wound infection. This needs to be followed up with urology and wound care clinic. He has a wound VAC in place. He will have wound clinic follow-up on Saturday who was also started amlodipine 5 mg twice daily for blood pressure Critical hyperkalemia--probable underlying RTA and Bactrim, losartan induced Underlying RTA and on top of that due to Bactrim losartan, dehydration and renal failure He always has his potassium around 5 probably due to RTA Potassium of 7.4 upon admission and improved and went up again We heart use hyperkalemia protocol multiple times to control his potassium Kayexalate used 30 3 times daily and event every 6 no EKG changes, received calcium gluconate Nephrology evaluated the patient and recommended follow-up outpatient Started him on bicarb 650 twice daily His potassium is 4.8 he needs to follow-up with nephrology next week Acute renal failure probably due to medications and dehydration CKD stage IV Creatinine 3.2, upon admission back to baseline Adequate urine output Left abdominal superficial wound infection-status post incision drainage Leukocytosis improving no features of sepsis Continued clindamycin 600 3 times daily p.o. for next 10 days Wound VAC placed and planning for outpatient management Urology follow-up outpatient Essential hypertension Monitor blood pressure and restart home medication as needed We will discontinue losartan as he seems to have high normal potassium Blood pressure has been slightly elevated Started on amlodipine 5 mg twice daily This needs to be followed up with a primary care provider Discharge diagnosis: Critical hyperkalemia, acute renal failure, abdominal wound status post inc - Time Spent with Patient Total time spent providing and/or coordinating discharge services: Greater than 30 minutes Medical - DS: Exam - Constitutional Vitals: Vital Signs Temp Pulse Pulse Resp BP BP BP 11/22/18 07:42 98.2 F 68 18 154/77 11/22/18 03:52 98.6 F 20 152/97 11/21/18 19:04 98.9 F 80 20 151/83 11/21/18 18:48 71 11/21/18 16:18 98.1 F 153/72 11/21/18 12:48 98.8 F 11/21/18 12:31 147/78 11/21/18 12:00 99.1 F H 88 18 137/68 Pulse Ox 11/22/18 07:42 97 11/22/18 03:52 98 11/21/18 19:04 97 11/21/18 18:48 97 11/21/18 16:18 11/21/18 12:48 11/21/18 12:31 11/21/18 12:00 96 Intake and Output 11/21/18 11/22/18 11/22/18 21:59 05:59 13:59 Intake Total 694 828 Output Total 950 385 350 Balance -256 443 -350 Intake: IV 54 108 Cleocin 600 mg In Dextrose 5% 54 108 in Water 50 ml @ 100 mls/hr IV Q8H [facility] Rx#:[id number] Oral 640 720 Output: Void Amount 150 385 350 Urine/Stool Mix 800 Other: Meal Dinner snack Percent of Meal Consumed 100% 100% Feeding Ability Assist with Tray Set Up Urine Appearance Clear Clear Urine Color Straw Straw Urine Odor Normal Stool Size Small Small Small Stool Color Brown Brown Brown Stool Consistency Soft Soft Soft # Bowel Movements 1 1 1 Weight 244 lb 4.8 oz General appearance: no acute distress, obese - Head Head exam: Present: atraumatic, normal inspection, normocephalic - Eye Eye exam: Present: conjunctival injection, normal appearance - ENT ENT exam: Present: normal exam - Neck Neck exam: Present: full ROM, normal inspection - Respiratory Respiratory exam: Present: normal respiratory exam. Absent: accessory muscle use, chest wall tenderness - Cardiovascular Cardiovascular exam: Present: normal rate and rhythm. Absent: bradycardia, tachycardia - GI/Abdominal GI/Abdominal exam: Present: normal bowel sounds, soft, distended - Neurological Exam Neurological exam: Present: alert, oriented X3, reflexes normal. Absent: altered, motor sensory deficit Medical - DS: Data Labs on day of discharge: Labs from last 24 hours 11/22/18 03:50 Sodium 138 Potassium 4.8 Chloride 103 Carbon Dioxide 19 L Anion Gap 16.0 BUN 28 H Creatinine 2.6 H GFR Calculation 24 Glucose 120 H Calcium 9.5 Total Bilirubin 0.4 AST 13 ALT 10 Alkaline Phosphatase 73 Total Protein 7.3 Albumin 4.1 Globulin 3.2 Albumin/Globulin Ratio 1.3 Medical - DS: A/P - Patient/Caregiver Discharge Instructions Activity: increase activity as tolerated Diet: Renal (Low potassium diet) Prescriptions: Clindamycin HCl [Cleocin] 600 mg PO TID 10 Days cap Prescription Printed amLODIPine [Norvasc] 5 mg PO BID 30 Days tab Prescription Printed Sodium Bicarbonate 650 mg PO BID 7 Days tab Prescription Printed Other Amb Orders: Discharge Referrals Time Frame: 11/28/18, Facility: [facility], Location: Medical/Surgical Outpatient Renal Function Panel Time Frame: 11/24/18, Location: None Selected - Follow up Plan Follow up with: Melchor Castaneda MD [Physician] - (in a week) Lucien Mehta ARNP [Primary Care Provider] - Disposition: Home, Self-Care Prognosis: Fair Rehab Potential: Fair I certify that the patient requires SNF services: No Overall status at discharge: patient is progressing back to baseline Medical - DS: Qual - VTE Deep Vein Thrombosis/Pulmonary Embolism Present on Admission: No
--- NOTE | 2018-11-22 10:56 | Nephrology Progress Note ---
Subjective Patient information: Note initiated : 11/22/18 at 10:51 am Service Date, if different from initiated Date: [] Patient: Anival Cabezas 68 y/o M admitted on 11/18/18 for hyperkalemia. 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 and decreased renal function due to decreased renal mass (left NPx in 07/2018 Acute hyperkalemia due to Rx theat interfer with renal K hangling (ACEi, Bactrim, and prior NSAIDs) Responded to acute (Insulin, glucose, Ca and albuterol) and chroic Tx (stop offending Rx, NaHCO3 and kayexalate) Hischarge on Bicarb po and Patrimer 8.4 mg po qD) Labs Tu) and office visit with me next week) Pertinent ROS: N/A Additional PMFSH (Level 3 Only): N/A Objective - Vital Signs Vital signs: Vital Signs Temp Pulse Pulse Resp BP BP BP 11/22/18 07:42 98.2 F 68 18 154/77 11/22/18 03:52 98.6 F 20 152/97 11/21/18 19:04 98.9 F 80 20 151/83 11/21/18 18:48 71 11/21/18 16:18 98.1 F 153/72 11/21/18 12:48 98.8 F 11/21/18 12:31 147/78 11/21/18 12:00 99.1 F H 88 18 137/68 Pulse Ox 11/22/18 07:42 97 11/22/18 03:52 98 11/21/18 19:04 97 11/21/18 18:48 97 11/21/18 16:18 11/21/18 12:48 11/21/18 12:31 11/21/18 12:00 96 Intake and Output 11/21/18 11/22/18 11/22/18 21:59 05:59 13:59 Intake Total 694 828 Output Total 950 385 350 Balance -256 443 -350 Intake: IV 54 108 Cleocin 600 mg In Dextrose 5% 54 108 in Water 50 ml @ 100 mls/hr IV Q8H [facility] Rx#:[id number] Oral 640 720 Output: Void Amount 150 385 350 Urine/Stool Mix 800 Other: Meal Dinner snack Percent of Meal Consumed 100% 100% Feeding Ability Assist with Tray Set Up Urine Appearance Clear Clear Urine Color Straw Straw Urine Odor Normal Stool Size Small Small Small Stool Color Brown Brown Brown Stool Consistency Soft Soft Soft # Bowel Movements 1 1 1 Weight 244 lb 4.8 oz Intake & Output: Intake & Output 11/21/18 11/22/18 11/22/18 21:59 05:59 13:59 Intake Total 694 828 Output Total 950 385 350 Balance -256 443 -350 Weight 244 lb 4.8 oz Intake: IV 54 108 Cleocin 600 mg In Dextrose 5% 54 108 in Water 50 ml @ 100 mls/hr IV Q8H [facility] Rx#:[id number] Oral 640 645 Output: Void Amount 150 385 350 Urine/Stool Mix 800 Other: Meal Dinner snack Percent of Meal Consumed 100% 100% Feeding Ability Assist with Tray Set Up Urine Appearance Clear Clear Urine Color Straw Straw Urine Odor Normal Stool Size Small Small Small Stool Color Brown Brown Brown Stool Consistency Soft Soft Soft # Bowel Movements 1 1 1 - General Appearance General appearance: well-developed, appears started age EENT: ATNC, PERRL Neck: no JVD Respiratory: no kyphosis Cardiology: no murmurs, no rub, no edema Gastrointestinal: normoactive bowel sounds, tenderness Integumentary: no rash Neurologic: no focal deficit, no asterixis, alert and oriented x3 Musculoskeletal: no deformities, no cyanosis, no clubbing Psychiatric: mood/affect appropriate - Lab 11/21/18 04:15 11/22/18 03:50 Most recent lab results Calcium 9.5 mg/dl (8.6-10.4) 11/22/18 03:50 Magnesium 1.7 mg/dL (1.6-2.5) 11/20/18 03:43 - Imaging Kidney/bladder ultrasound: report reviewed Assessment and Plan (1) Hyperkalemia Stop kayexalate to 15 gm qDay Trial patiromer 8.4 gm po qD as outpatient NaHCO3 Tabs po Avoid ACEi, ARBs, spironolactone, all NSAIDs, and B-blockers Follow up with nephrology next week K 4.9 at D/C Status: Acute Priority: High (2) Type 2 DM with CKD stage 4 and hypertension [id number] switched to amlodipine at d/cfor BP control and low grade proteinuria Avoid ACEi/ARB/Aldactone and B-blockers NaHCO3 650 mg BID Status: Acute Priority: Medium (3) H/O left radical nephrectomy Stable CKD 4 with GFR 20-30 cc/min due to loss of renal mass superimposed on underlying CKD3 (HTN/DM) Status: Chronic Priority: Medium
== END 2018-11-22 11:00 | disposition home or self-care (01) | DRG 988 ==
LOC: ED 09:44 → ICU 13:30
PROVIDERS: ADMIT Internal Medicine; ATTEND Internal Medicine